=== PATIENT | female | born 1945 | race Caucasian/White ===

== ENCOUNTER → 2017-02-19 | Outpatient (CLI) | payer MEDICARE, OTHER ==
[~2017-02-19] MED LIST: ADENOSINE 65 MG in GIVE UN-DILUTED 0 ML IV ONE; ADENOSINE 90 MG/30 ML INJ IV ONE; ATO40T PO; CLOP75TA28 PO; INSU70IN9 SC; LOSA50TA27 PO; METO25TA5 PO; SERT-135 PO
== END | disposition home or self-care (01) ==
LOC: Rad HDHVI 13:12
PROVIDERS: ATTEND Internal Medicine Cardiovascular Disease
DX: I36.1 Nonrheumatic tricuspid (valve) insufficiency (principal); I27.20 Pulmonary hypertension, unspecified; I06.0 Rheumatic aortic stenosis; I70.0 Atherosclerosis of aorta
CPT/HCPCS: 78452; 93005; 93306; 96374; 96375; A9500; J0153

== ENCOUNTER 2017-06-06 16:04 | Emergency (ER) | payer MEDICARE, OTHER ==
[~2017-06-06] VITALS: Ht 165.1 cm; Wt 80.7 kg
[~2017-06-06 16:04] MED LIST changes: -ADENOSINE 65 MG in GIVE UN-DILUTED 0 ML IV ONE; -ADENOSINE 90 MG/30 ML INJ IV ONE
[2017-06-06 19:03] VITALS: BP 159/85
== END 2017-06-06 19:20 | disposition left against medical advice (07) ==
LOC: ER 16:15
DX: S00.93XA Contusion of unspecified part of head, initial encounter (principal); R51 Headache; Z53.21 Procedure and treatment not carried out due to patient leaving prior to being seen by health care provider; W19.XXXA Unspecified fall, initial encounter; Y93.89 Activity, other specified; Y99.8 Other external cause status; Y92.89 Other specified places as the place of occurrence of the external cause
CPT/HCPCS: 70450

== ENCOUNTER → 2017-06-30 | Outpatient (CLI) | payer MEDICARE, OTHER ==
[~2017-06-30] MED LIST changes: +READI-CAT 2 (BARIUM SULF)(VANILLA SMOOTHIE) 450ML ONE
[2017-06-30 16:09] LABS: Basophils # (auto) 0.1 uL; Basophils % (auto) 1.4 % (0.0-2.0); Eosinophils # (auto) 0.1 uL; Eosinophils % (auto) 2.6 % (0.0-7.0); Hemoglobin 11.9 g/dL (12.2-16.2); Lymphocytes # (auto) 1.2 uL; Lymphocytes % (auto) 24.5 % (10.0-50.0); Mean Corpuscular Hemoglobin 31.1 pg (28.0-32.0); Mean Corpuscular Volume 94.3 fL (80.0-100.0); Monocytes # (auto) 0.3 uL; Neutrophils # (auto) 3.4 uL; Neutrophils % (auto) 66.5 % (37.0-80.0); Platelet Count (auto) 203 10^3/uL (140-450); Red Blood Cells 3.82 10^6/uL (4.0-5.20); Red Cell Distribution Width 16.9 % (11.8-14.3); White Blood Cell 5.1 10^3/uL (4.4-10.8)
[2017-06-30 16:17] LABS: BUN/Creatinine Ratio 10.1; Calcium 8.3 mg/dL (8.5-10.1); Potassium 3.9 mmol/L (3.5-5.1)
== END | disposition home or self-care (01) ==
LOC: Rad HDHVI 13:52
PROVIDERS: ATTEND Internal Medicine Cardiovascular Disease
DX: K57.30 Diverticulosis of large intestine without perforation or abscess without bleeding (principal); R18.8 Other ascites; J90 Pleural effusion, not elsewhere classified; D64.9 Anemia, unspecified; I10 Essential (primary) hypertension
CPT/HCPCS: 36415; 74176; 80048; 85025

== ENCOUNTER → 2018-01-26 | Outpatient (CLI) | payer MEDICARE, OTHER ==
[~2018-01-26] MED LIST changes: -READI-CAT 2 (BARIUM SULF)(VANILLA SMOOTHIE) 450ML ONE
== END | disposition home or self-care (01) ==
LOC: Rad HDHVI 10:19
PROVIDERS: ATTEND Internal Medicine Cardiovascular Disease
DX: E11.9 Type 2 diabetes mellitus without complications (principal); I95.9 Hypotension, unspecified
CPT/HCPCS: 93306

== ENCOUNTER → 2018-02-02 | Outpatient (CLI) | payer MEDICARE, OTHER ==
[~2018-02-02] MED LIST changes: +APIX5TAB OR; +ATOR80TA PO; +CALC0.25 PO; +CALC667C PO; +DOCU-94 PO; +ERGO1CAP23 PO; +HYDR12.56 PO; +LETR2.5T PO; +LOSA100T25 PO; +PERCOT PO
== END | disposition home or self-care (01) ==
LOC: Rad HDHVI 09:51
PROVIDERS: ATTEND Internal Medicine Cardiovascular Disease
DX: I70.203 Unspecified atherosclerosis of native arteries of extremities, bilateral legs (principal); I12.0 Hypertensive chronic kidney disease with stage 5 chronic kidney disease or end stage renal disease; E11.22 Type 2 diabetes mellitus with diabetic chronic kidney disease; N18.6 End stage renal disease
CPT/HCPCS: 93926

== ENCOUNTER → 2018-02-18 | Outpatient (CLI) | payer MEDICARE, OTHER ==
[~2018-02-18] VITALS: Ht 165.1 cm; Wt 83.5 kg
[~2018-02-18] MED LIST changes: +ADENOSINE 70 MG in GIVE UN-DILUTED 0 ML IV ONE; +ADENOSINE 90 MG/30 ML INJ IV ONE; -APIX5TAB OR; -ATOR80TA PO; -CALC0.25 PO; -CALC667C PO; -DOCU-94 PO; -ERGO1CAP23 PO; -HYDR12.56 PO; -LETR2.5T PO; -LOSA100T25 PO; -PERCOT PO
== END | disposition home or self-care (01) ==
LOC: Rad HDHVI 09:43
PROVIDERS: ATTEND Internal Medicine Cardiovascular Disease
DX: E11.21 Type 2 diabetes mellitus with diabetic nephropathy (principal); E11.40 Type 2 diabetes mellitus with diabetic neuropathy, unspecified; E11.22 Type 2 diabetes mellitus with diabetic chronic kidney disease; N18.6 End stage renal disease; I95.9 Hypotension, unspecified; E78.00 Pure hypercholesterolemia, unspecified
CPT/HCPCS: 78452; 93005; 96374; 96375; A9500; J0153

== ENCOUNTER 2018-03-11 09:03 | Inpatient (IN) | payer MEDICARE, OTHER | END 2018-03-12 12:30 | disposition home or self-care (01) | LOC: CATH 09:03 → TELE-WESTW 16:00 → WEST WING 19:57 | PROC: B41G1ZZ Fluoroscopy of Left Lower Extremity Arteries using Low Osmolar Contrast (ICD-10-PCS; principal; ~2018-03-11) | PROC: 047L3ZZ Dilation of Left Femoral Artery, Percutaneous Approach (ICD-10-PCS; ~2018-03-11) | PROC: 047S3ZZ Dilation of Left Posterior Tibial Artery, Percutaneous Approach (ICD-10-PCS; ~2018-03-11) | PROC: 04CN3ZZ Extirpation of Matter from Left Popliteal Artery, Percutaneous Approach (ICD-10-PCS; ~2018-03-11) | PROC: 04CL3ZZ Extirpation of Matter from Left Femoral Artery, Percutaneous Approach (ICD-10-PCS; ~2018-03-11) | PROC: 04CS3ZZ Extirpation of Matter from Left Posterior Tibial Artery, Percutaneous Approach (ICD-10-PCS; ~2018-03-11) | PROC: 047U3ZZ Dilation of Left Peroneal Artery, Percutaneous Approach (ICD-10-PCS; ~2018-03-11) | PROC: 047N3ZZ Dilation of Left Popliteal Artery, Percutaneous Approach (ICD-10-PCS; ~2018-03-11) | PROC: B41F1ZZ Fluoroscopy of Right Lower Extremity Arteries using Low Osmolar Contrast (ICD-10-PCS; ~2018-03-11) | DX: N18.6 End stage renal disease (principal); I13.2 Hypertensive heart and chronic kidney disease with heart failure and with stage 5 chronic kidney disease, or end stage renal disease; N17.9 Acute kidney failure, unspecified; Z86.73 Personal history of transient ischemic attack (TIA), and cerebral infarction without residual deficits; Z85.3 Personal history of malignant neoplasm of breast; E11.51 Type 2 diabetes mellitus with diabetic peripheral angiopathy without gangrene; I48.91 Unspecified atrial fibrillation; E11.22 Type 2 diabetes mellitus with diabetic chronic kidney disease; E78.5 Hyperlipidemia, unspecified; L08.9 Local infection of the skin and subcutaneous tissue, unspecified ==

== ENCOUNTER → 2018-03-19 | Outpatient (CLI) | payer MEDICARE, OTHER ==
[~2018-03-19] MED LIST changes: -ADENOSINE 70 MG in GIVE UN-DILUTED 0 ML IV ONE; -ADENOSINE 90 MG/30 ML INJ IV ONE; +APIX5TAB OR; -ATO40T PO; +ATOR80TA PO; +CALC0.25 PO; +CALC667C PO; -CLOP75TA28 PO; +DOCU-94 PO; +ERGO1CAP23 PO; +LETR2.5T PO; +LOSA100T25 PO; -LOSA50TA27 PO; -METO25TA5 PO; +VANCOMYCIN 1GM/250ML 250 ML IV ONE; +cefTRIAXone 1GM/50ML D5W 50 ML IV ONE
--- NOTE | 2018-03-19 14:00 | NUR ---
IV PLACED TO RIGHT AC 22 GAUGE BY ERIN BARRY. IV ANTIBIOTICS ADMINISTERED PER ORDER. TOLERATED WELL VS WNL. IN ATTENDANCE. LEFT FOOT WITH GANGRENE GREAT TOE. BLACK. COLOR ON FOOT PINK AND REDDISH WITH PALPABLE PULSES AND WARM. MEDICATION ADMINISTRATION CEFTRIAZONE 1 GRAM IVPB START AT 1230/STOP AT 1300 VANCOMYCIN 1 GRAM IVPB START AT 1300/STOP AT 1400
== END | disposition home or self-care (01) ==
LOC: CHF HDHVI 12:12
PROVIDERS: ATTEND Internal Medicine Cardiovascular Disease
DX: E11.52 Type 2 diabetes mellitus with diabetic peripheral angiopathy with gangrene (principal); I70.263 Atherosclerosis of native arteries of extremities with gangrene, bilateral legs; I13.2 Hypertensive heart and chronic kidney disease with heart failure and with stage 5 chronic kidney disease, or end stage renal disease; E11.22 Type 2 diabetes mellitus with diabetic chronic kidney disease; N18.6 End stage renal disease; E11.21 Type 2 diabetes mellitus with diabetic nephropathy; E11.40 Type 2 diabetes mellitus with diabetic neuropathy, unspecified; I25.10 Atherosclerotic heart disease of native coronary artery without angina pectoris; I50.9 Heart failure, unspecified; E78.5 Hyperlipidemia, unspecified; I70.0 Atherosclerosis of aorta; E78.00 Pure hypercholesterolemia, unspecified; I48.91 Unspecified atrial fibrillation; I27.20 Pulmonary hypertension, unspecified; I44.0 Atrioventricular block, first degree; I44.7 Left bundle-branch block, unspecified; Z99.2 Dependence on renal dialysis; Z85.3 Personal history of malignant neoplasm of breast; Z86.73 Personal history of transient ischemic attack (TIA), and cerebral infarction without residual deficits; Z86.718 Personal history of other venous thrombosis and embolism; Z90.10 Acquired absence of unspecified breast and nipple; Z79.4 Long term (current) use of insulin
CPT/HCPCS: 96365; 96367; G0463; J0696; J3370

== ENCOUNTER → 2018-03-22 | Outpatient (CLI) | payer MEDICARE, OTHER ==
[~2018-03-22] VITALS: Ht 30.5 cm; Wt 0.5 kg
[2018-03-22 12:30] VITALS: BP 107/86
--- NOTE | 2018-03-22 12:30 | NUR ---
IN TO CLINIC FOR ADDITIONAL DAY OF IV ANTIBIOTIC THERAPY FOR GANGRENOUS LEFT GREAT TOE. VS WNL. ARRIVES BY WHEELCHAIR WITH IN ATTENDANCE.
--- NOTE | 2018-03-22 13:15 | NUR ---
IV insertion IV access obtained, via clean sterile technique by inserting 22 gauge catheter at after attempt(s)BY 2 RNS. IV secured properly. No trauma to site. Patient tolerated procedure well. START FIRST IV ANTIBIOTIC
--- NOTE | 2018-03-22 13:37 | NUR ---
FIRST ANTIBIOTIC COMPLETED. START SECOND ANTIBIOTIC.
--- NOTE | 2018-03-22 14:45 | NUR ---
ANTIBIOTIC COMPLETED. HEPARIN ADMINISTERED TO KEEP IV PATENT FOR ADDITIONAL USE ON 03/23/18 AND 03/24/18.
[2018-03-22 14:47] VITALS: BP 177/78
--- NOTE | 2018-03-22 14:47 | NUR ---
Discharge Instructions See e-MAR for any mediations given with this visit. Patient education given on disease process. Patient verbalized understanding. Previous labs reviewed. Patient discharged in stable condition WITH AND after care instructions and follow up appointment FOR 03/23/18 MEDICATION ADMINISTRATION ROCEPHIN 1 GRAM IVPB START AT 1315/STOP AT 1337 VANCOMYCIN 1 GRAM IVPB START AT 1337/STOP AT 1445 HEPARIN 100 UNITS IVP AT 1445
== END | disposition home or self-care (01) ==
LOC: CHF HDHVI 12:30
PROVIDERS: ATTEND Internal Medicine Cardiovascular Disease
DX: E11.52 Type 2 diabetes mellitus with diabetic peripheral angiopathy with gangrene (principal); I96 Gangrene, not elsewhere classified; E11.22 Type 2 diabetes mellitus with diabetic chronic kidney disease; I13.2 Hypertensive heart and chronic kidney disease with heart failure and with stage 5 chronic kidney disease, or end stage renal disease; I50.9 Heart failure, unspecified; N18.6 End stage renal disease; D63.1 Anemia in chronic kidney disease; I25.10 Atherosclerotic heart disease of native coronary artery without angina pectoris; E78.5 Hyperlipidemia, unspecified; E78.00 Pure hypercholesterolemia, unspecified; E11.40 Type 2 diabetes mellitus with diabetic neuropathy, unspecified; E11.21 Type 2 diabetes mellitus with diabetic nephropathy; I48.91 Unspecified atrial fibrillation; Z95.0 Presence of cardiac pacemaker; Z85.3 Personal history of malignant neoplasm of breast; Z86.718 Personal history of other venous thrombosis and embolism; Z99.2 Dependence on renal dialysis; Z79.4 Long term (current) use of insulin
CPT/HCPCS: 96365; 96367; G0463; J0696; J1642; J3370

== ENCOUNTER → 2018-03-23 | Outpatient (CLI) | payer MEDICARE, OTHER ==
[~2018-03-23] VITALS: Ht 1 cm; Wt 1.0 kg
[2018-03-23 12:30] VITALS: BP 128/56
[2018-03-23 14:15] VITALS: BP 139/63
--- NOTE | 2018-03-23 14:15 | NUR ---
IN TO CLINIC WITH IN ATTENDANCE. PT UNABLE TO WALK AND HAS SOCK PLACED OVER LEFT FOOT. PT REPORTS THAT HER FOOT ;LOOKS BAD TODAY". PT INSTRUCTED ON STATUS, AND PT HAS SMALL AMOUNT SOME RESIDUAL SWELLING NOTED. REPORTS THAT SHE WAS UP ON FOOT QUITE A BIT THROUGH DAY YESTERDAY. VS WNL. AFFECT COOPERATIVE. RIGHT WRIST IV SITE USED AND FLUSHED AND ADMINISTERED IV MEDS AND SITE BENIGN POST USE . WRAPPED AND HEPARINIZED POST USE. Discharge Instructions See e-MAR for any mediations given with this visit. Patient education given on disease process. Patient verbalized understanding. Previous labs reviewed. Patient discharged in stable condition with after care instructions and follow up appointment FOR 03/24/18 MEDICATION ADMINISTRATION ROCEPHIN 1 GRAM IVPB START AT 1250/STOP AT 1320 VANCOMYCIN 1 GRAM IVPB START AT 1320 STOP AT 1415 HEPARIN 100 UNITS IVP TO RIGHT WRIST IV
== END | disposition home or self-care (01) ==
LOC: CHF HDHVI 12:27
PROVIDERS: ATTEND Internal Medicine Cardiovascular Disease
DX: I12.0 Hypertensive chronic kidney disease with stage 5 chronic kidney disease or end stage renal disease (principal); E11.22 Type 2 diabetes mellitus with diabetic chronic kidney disease; I50.9 Heart failure, unspecified; N18.6 End stage renal disease; D63.1 Anemia in chronic kidney disease; E11.52 Type 2 diabetes mellitus with diabetic peripheral angiopathy with gangrene; E11.40 Type 2 diabetes mellitus with diabetic neuropathy, unspecified; I25.10 Atherosclerotic heart disease of native coronary artery without angina pectoris; I27.21 Secondary pulmonary arterial hypertension; I48.91 Unspecified atrial fibrillation; E78.00 Pure hypercholesterolemia, unspecified; Z99.2 Dependence on renal dialysis; Z79.4 Long term (current) use of insulin; Z86.718 Personal history of other venous thrombosis and embolism; Z90.10 Acquired absence of unspecified breast and nipple; Z86.73 Personal history of transient ischemic attack (TIA), and cerebral infarction without residual deficits
CPT/HCPCS: 96365; 96367; G0463; J0696; J1642; J3370

== ENCOUNTER → 2018-04-13 | Outpatient (CLI) | payer MEDICARE, OTHER ==
[~2018-04-13] MED LIST changes: -DOCU-94 PO; -VANCOMYCIN 1GM/250ML 250 ML IV ONE; -cefTRIAXone 1GM/50ML D5W 50 ML IV ONE
[2018-04-13 11:00] VITALS: BP 135/65
--- NOTE | 2018-04-13 11:00 | NUR ---
CHF PT TO CHF CLINIC FOR PREOP EKG. LABS AND CHEST XRAY TO READY FOR PROCEDURE PTCA 04/15/18.
[2018-04-13 11:30] VITALS: BP 146/56
--- NOTE | 2018-04-13 11:30 | NUR ---
CHF Discharge Instructions See e-MAR for any mediations given with this visit. Patient education given on disease process. Patient verbalized understanding. Previous labs reviewed. Patient discharged in stable condition with after care instructions and follow up appointment.
[2018-04-13 12:18] LABS: Basophils # (auto) 0.1 uL; Basophils % (auto) 1.4 % (0.0-2.0); Eosinophils # (auto) 0.3 uL; Eosinophils % (auto) 3.3 % (0.0-7.0); Hematocrit 32.1 % (36.0-46.0); Hemoglobin 10.6 g/dL (12.2-16.2); Lymphocytes # (auto) 1.7 uL; Lymphocytes % (auto) 19.6 % (10.0-50.0); Mean Corpuscular Hemoglobin 31.7 pg (28.0-32.0); Mean Corpuscular Hgb Conc. 33.1 g/dL (32.0-36.0); Mean Corpuscular Volume 95.6 fL (80.0-100.0); Monocytes # (auto) 0.5 uL; Monocytes % (auto) 5.5 % (0.0-12.0); Neutrophils % (auto) 70.2 % (37.0-80.0); Platelet Count (auto) 279 10^3/uL (140-450); Red Blood Cells 3.35 10^6/uL (4.0-5.20); White Blood Cell 8.6 10^3/uL (4.4-10.8)
[2018-04-13 12:31] LABS: BUN/Creatinine Ratio 10.3; Calcium 8.3 mg/dL (8.5-10.1); Potassium 4.1 mmol/L (3.5-5.1)
[2018-04-13 12:37] LABS: INR 0.93 (0.9-1.15); Partial Thromboplastin Time 29.2 sec (23.78-33.04)
== END | disposition home or self-care (01) ==
LOC: CHF HDHVI 10:44
PROVIDERS: ATTEND Internal Medicine Cardiovascular Disease
DX: Z01.812 Encounter for preprocedural laboratory examination (principal); I70.0 Atherosclerosis of aorta; I10 Essential (primary) hypertension; I73.9 Peripheral vascular disease, unspecified; D64.9 Anemia, unspecified; R79.1 Abnormal coagulation profile; R94.31 Abnormal electrocardiogram [ECG] [EKG]; Z98.61 Coronary angioplasty status
CPT/HCPCS: 36415; 71046; 80048; 85025; 85610; 85730; 93005; G0463

== ENCOUNTER 2018-04-15 06:46 | Inpatient (IN) | payer MEDICARE, OTHER | END 2018-04-16 16:22 | disposition home or self-care (01) | LOC: CATH 06:46 → TELE-EAST 13:55 | PROC: B2161ZZ Fluoroscopy of Right and Left Heart using Low Osmolar Contrast (ICD-10-PCS; principal; ~2018-04-15) | PROC: 027236Z Dilation of Coronary Artery, Three Arteries with Three Drug-eluting Intraluminal Devices, Percutaneous Approach (ICD-10-PCS; ~2018-04-15) | DX: I25.10 Atherosclerotic heart disease of native coronary artery without angina pectoris (principal); N18.6 End stage renal disease; D68.59 Other primary thrombophilia; I48.91 Unspecified atrial fibrillation; Z99.2 Dependence on renal dialysis; I49.5 Sick sinus syndrome ==

== ENCOUNTER 2018-04-28 08:45 | Inpatient (IN) | payer MEDICARE, OTHER | END 2018-04-30 17:07 | disposition home or self-care (01) | LOC: CATH 09:13 → TELE-EAST 17:40 | PROC: B2111ZZ Fluoroscopy of Multiple Coronary Arteries using Low Osmolar Contrast (ICD-10-PCS; principal; ~2018-04-28) | PROC: 0270356 Dilation of Coronary Artery, One Artery, Bifurcation, with Two Drug-eluting Intraluminal Devices, Percutaneous Approach (ICD-10-PCS; ~2018-04-28) | DX: I22.9 Subsequent ST elevation (STEMI) myocardial infarction of unspecified site (principal); D68.59 Other primary thrombophilia; I21.4 Non-ST elevation (NSTEMI) myocardial infarction ==

== ENCOUNTER → 2018-05-26 | Outpatient (CLI) | payer MEDICARE, OTHER ==
[~2018-05-26] MED LIST changes: +AMIODARONE HCL 200 MG TAB ONE; +AMIODARONE HCL 200 MG TAB PO ONE; -APIX5TAB OR
[2018-05-26 11:14] VITALS: BP 94/61
--- NOTE | 2018-05-26 11:14 | NUR ---
CHF PT ARRIVED AT CHF CLINIC SHORT OF BREATH AND INCREASE HEART RATE. A/O X 4. V//S OBTAINED. PT SEES [place] [facility]. PT WAS ON WAY [place] [facility] TO SEE DR MASSEY FOR LABS BUT TURNED AROUND TO THE CLINIC DUE TO ALSO HAVING AN ECHO AT 1300 HERE.
--- NOTE | 2018-05-26 11:30 | NUR ---
IV insertion IV access obtained, via clean sterile technique by inserting 22 gauge catheter at after attempt(s). IV secured properly. No trauma to site. Patient tolerated procedure well.
--- NOTE | 2018-05-26 11:45 | NUR ---
Clinic Provider Clinic Provider into see pt, ORDERS RECIEVED AND NOTED. EKG DONE.
--- NOTE | 2018-05-26 12:15 | NUR ---
PT RESTING, ULTRASOUND COMPLETED
--- NOTE | 2018-05-26 12:43 | NUR ---
MEDICATION AMIODARONE 400MG PO GIVEN TO PATIENT BY LUIZ BARRY PER MD ORDER
[2018-05-26 13:04] LABS: Basophils # (auto) 0.1 uL; Basophils % (auto) 0.9 % (0.0-2.0); Eosinophils # (auto) 0.3 uL; Eosinophils % (auto) 2.8 % (0.0-7.0); Hematocrit 30.2 % (36.0-46.0); Lymphocytes # (auto) 1.2 uL; Lymphocytes % (auto) 12.9 % (10.0-50.0); Mean Corpuscular Hemoglobin 33.3 pg (28.0-32.0); Mean Corpuscular Hgb Conc. 33.1 g/dL (32.0-36.0); Mean Corpuscular Volume 100.4 fL (80.0-100.0); Monocytes # (auto) 0.6 uL; Monocytes % (auto) 6.1 % (0.0-12.0); Neutrophils # (auto) 7.5 uL; Neutrophils % (auto) 77.3 % (37.0-80.0); Platelet Count (auto) 316 10^3/uL (140-450); Red Blood Cells 3.01 10^6/uL (4.0-5.20); Red Cell Distribution Width 17.1 % (11.8-14.3); White Blood Cell 9.7 10^3/uL (4.4-10.8)
[2018-05-26 13:30] LABS: Calcium 9.2 mg/dL (8.5-10.1); Magnesium 3.6 mg/dL (1.6-2.6); Potassium 3.7 mmol/L (3.5-5.1)
[2018-05-26 13:36] LABS: BUN/Creatinine Ratio 4.2
--- NOTE | 2018-05-26 15:00 | NUR ---
IMAGING ECHO AND CHEST XRAY COMPLETED
--- NOTE | 2018-05-26 16:10 | NUR ---
at bedside. MD at bedside for evaluation and treatment for acute episode. Further orders received and carried out. Patient improved thhroughout the day. MD paredes reviewed echo, discussed with patient. Follow up scheduled for thursday05/28/18 at the clinic. Josias BARRY discussed plan of care with patient and . Pt and family verbalized understanding
--- NOTE | 2018-05-26 16:25 | NUR ---
IV removal IV DC'd with sterile technique, catheter fully intact. Pressure dressing applied to site. Patient tolerated procedure well. Discharged with aftercare instructions per MD. NOTE:
[2018-05-26 16:29] VITALS: BP 113/67
== END | disposition home or self-care (01) ==
LOC: CHF HDHVI 11:21
PROVIDERS: ATTEND Internal Medicine Cardiovascular Disease
DX: I08.1 Rheumatic disorders of both mitral and tricuspid valves (principal); I21.09 ST elevation (STEMI) myocardial infarction involving other coronary artery of anterior wall; I70.0 Atherosclerosis of aorta; D64.9 Anemia, unspecified; I20.9 Angina pectoris, unspecified; I11.0 Hypertensive heart disease with heart failure; I50.23 Acute on chronic systolic (congestive) heart failure; I27.21 Secondary pulmonary arterial hypertension; M54.16 Radiculopathy, lumbar region; E11.9 Type 2 diabetes mellitus without complications; I48.91 Unspecified atrial fibrillation; I49.9 Cardiac arrhythmia, unspecified; R94.31 Abnormal electrocardiogram [ECG] [EKG]
CPT/HCPCS: 36415; 71046; 80048; 82962; 83735; 83880; 84484; 85025; 93005; 93306; G0463

== ENCOUNTER → 2018-05-28 | Outpatient (CLI) | payer MEDICARE, OTHER ==
[~2018-05-28] MED LIST changes: +AMIO200T33 PO; -AMIODARONE HCL 200 MG TAB ONE; -AMIODARONE HCL 200 MG TAB PO ONE; +ASPI81CH43 PO; +BUME1TAB PO; +CHOL500021 PO; +FAM20T PO; +GENTAMICIN SULF 80 MG/2 ML VIAL ONE; +PATIENTS OWN MEDICATION (GENTAMICIN 160 MG) IV ONE; +SIMV40TA96 PO; +TICA1TAB PO; +VANCOMYCIN 1GM/250ML 250 ML IV ONE
[2018-05-28 10:03] VITALS: BP 108/49
--- NOTE | 2018-05-28 10:03 | NUR ---
CHF CLINIC Discharge Instructions See e-MAR for any mediations given with this visit. Patient education given on disease process. Patient verbalized understanding. Previous labs reviewed. Patient discharged in stable condition with after care instructions and follow up appointment. NOTE [place] [id number] ADMIN BY ERIN BARRY [facility] [id number] ADMIN BY ERIN BARRY Addendum: 07/07/18 at 1323 by SHANNON DELAROSA RN RN [place] LATE ENTRY FOR 05/28/18 [place] [id number] ADMIN BY ERIN BARRY
--- NOTE | 2018-05-28 10:30 | NUR ---
IV insertion IV access obtained, via clean sterile technique by inserting 22 gauge catheter at RAC after 1 attempt(s). IV secured properly. No trauma to site. Patient tolerated procedure well.
--- NOTE | 2018-05-28 10:35 | NUR ---
STAT LABS SENT PER MD ORDER FOR POSSIBLE ADMIT TO [facility]. PER SPOUSE, PT. 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 PT. APPEARS IN NAD SINCE LAST SEEN IN CLINIC ON [facility]. FBS IS 221. PT. HAS NOT BEEN ABLE TO TAKE HER PO KEFLEX FOR OVER 24 HRS DUE TO NAUSEA.
[2018-05-28 11:30] LABS: Basophils # (auto) 0.1 uL; Basophils % (auto) 0.8 % (0.0-2.0); Eosinophils # (auto) 0.3 uL; Eosinophils % (auto) 2.7 % (0.0-7.0); Hematocrit 30.1 % (36.0-46.0); Hemoglobin 9.8 g/dL (12.2-16.2); Lymphocytes # (auto) 0.8 uL; Lymphocytes % (auto) 9.1 % (10.0-50.0); Mean Corpuscular Hemoglobin 32.4 pg (28.0-32.0); Mean Corpuscular Hgb Conc. 32.6 g/dL (32.0-36.0); Mean Corpuscular Volume 99.5 fL (80.0-100.0); Monocytes # (auto) 0.4 uL; Monocytes % (auto) 4.7 % (0.0-12.0); Neutrophils # (auto) 7.6 uL; Neutrophils % (auto) 82.7 % (37.0-80.0); Nucleated Red Blood Cells % 0.1 %; Platelet Count (auto) 307 10^3/uL (140-450); Red Blood Cells 3.03 10^6/uL (4.0-5.20); Red Cell Distribution Width 17.3 % (11.8-14.3); White Blood Cell 9.2 10^3/uL (4.4-10.8)
--- NOTE | 2018-05-28 11:30 | NUR ---
PT. TO DR. SORENSON'S OFFICE VIA WC WITH THIS RN AND SPOUSE, FOR LAB RESULTS AND REVIEW OF DIAGNOSTICS FROM [facility]. AND POSSIBLE NEED FOR HOSPITALIZATION DUE TO MULTIPLE DZ. PROCESS CO-MORBIDITY ISSUES, INCLUDING INFECTION TO RT GREATER TOE, REVASCULARIZATION TO RLE, NEED FOR UPGRADE TO BI-V AICD, AND TEMPORARY HEMODIALYSIS. SPOUSE REQUESTS IF PT. CAN WAIT UNTIL THURSDAY FOR ADMISSION, OR POSSIBLY PUT PT. ON LIST FOR THURSDAY EVENING. NEW ORDERS RECEIVED FROM DR. SORENSON FOR ABX THERAPY, THEN DISCHARGE HOME AND KEEP IN CONTACT WITH THIS RN ON PT. STATUS OVER THE WEEKEND. IF PT. FEELS WELL, PT. TO RTC THURSDAY AM FOR ADMIT TO [facility].
[2018-05-28 11:36] LABS: Albumin 2.4 g/dL (3.4-5.0); Calcium 8.7 mg/dL (8.5-10.1); Potassium 3.4 mmol/L (3.5-5.1)
[2018-05-28 11:41] LABS: BUN/Creatinine Ratio 4.3; Bilirubin, Total 0.4 mg/dL (0.2-1.0); Total Protein 7.9 g/dL (6.4-8.2)
[2018-05-28 11:46] LABS: Partial Thromboplastin Time 29.6 sec (23.78-33.04); Prothrombin Time 10.7 sec (9.27-12.13)
[2018-05-28 14:45] VITALS: BP 104/52
--- NOTE | 2018-05-28 14:45 | NUR ---
Discharge Instructions See e-MAR for any mediations given with this visit. Patient education given on disease process. Patient verbalized understanding. Previous labs reviewed. Patient discharged in stable condition with after care instructions and follow up appointment. PT. TO FOLLOW UP WITH RN OVER THE WEEKEND. PT. TO RTC THURSDAY AM AT 10:00.
== END | disposition home or self-care (01) ==
LOC: CHF HDHVI 10:51
PROVIDERS: ATTEND Internal Medicine Cardiovascular Disease
DX: I13.2 Hypertensive heart and chronic kidney disease with heart failure and with stage 5 chronic kidney disease, or end stage renal disease (principal); E11.22 Type 2 diabetes mellitus with diabetic chronic kidney disease; I50.22 Chronic systolic (congestive) heart failure; N18.6 End stage renal disease; D64.9 Anemia, unspecified; L08.9 Local infection of the skin and subcutaneous tissue, unspecified; R79.1 Abnormal coagulation profile; I27.21 Secondary pulmonary arterial hypertension; I48.91 Unspecified atrial fibrillation; I25.10 Atherosclerotic heart disease of native coronary artery without angina pectoris; E78.5 Hyperlipidemia, unspecified; I25.2 Old myocardial infarction; E11.40 Type 2 diabetes mellitus with diabetic neuropathy, unspecified; E11.69 Type 2 diabetes mellitus with other specified complication; M86.9 Osteomyelitis, unspecified; E11.51 Type 2 diabetes mellitus with diabetic peripheral angiopathy without gangrene; I45.9 Conduction disorder, unspecified; Z95.1 Presence of aortocoronary bypass graft; Z99.2 Dependence on renal dialysis; Z95.5 Presence of coronary angioplasty implant and graft; Z79.01 Long term (current) use of anticoagulants; Z86.73 Personal history of transient ischemic attack (TIA), and cerebral infarction without residual deficits
CPT/HCPCS: 36415; 80053; 83880; 85025; 85610; 85730; 96365; 96367; G0463; J1580; J3370

== ENCOUNTER 2018-06-03 09:11 | Inpatient (IN) | payer MEDICARE, OTHER | END 2018-06-05 11:19 | disposition home or self-care (01) | LOC: CATH 09:11 → EAST 19:16 → TELE-EAST 20:23 | PROC: 0JH609Z Insertion of Cardiac Resynchronization Defibrillator Pulse Generator into Chest Subcutaneous Tissue and Fascia, Open Approach (ICD-10-PCS; principal; ~2018-06-03) | PROC: 02HK3KZ Insertion of Defibrillator Lead into Right Ventricle, Percutaneous Approach (ICD-10-PCS; ~2018-06-03) | PROC: 02HL3KZ Insertion of Defibrillator Lead into Left Ventricle, Percutaneous Approach (ICD-10-PCS; ~2018-06-03) | PROC: 02H63KZ Insertion of Defibrillator Lead into Right Atrium, Percutaneous Approach (ICD-10-PCS; ~2018-06-03) | PROC: 0JPT3PZ Removal of Cardiac Rhythm Related Device from Trunk Subcutaneous Tissue and Fascia, Percutaneous Approach (ICD-10-PCS; ~2018-06-03) | PROC: 04CR3ZZ Extirpation of Matter from Right Posterior Tibial Artery, Percutaneous Approach (ICD-10-PCS; ~2018-06-03) | PROC: 04CM3ZZ Extirpation of Matter from Right Popliteal Artery, Percutaneous Approach (ICD-10-PCS; ~2018-06-03) | PROC: 047R3ZZ Dilation of Right Posterior Tibial Artery, Percutaneous Approach (ICD-10-PCS; ~2018-06-03) | PROC: 047M3ZZ Dilation of Right Popliteal Artery, Percutaneous Approach (ICD-10-PCS; ~2018-06-03) | PROC: B41G1ZZ Fluoroscopy of Left Lower Extremity Arteries using Low Osmolar Contrast (ICD-10-PCS; ~2018-06-03) | PROC: B41F1ZZ Fluoroscopy of Right Lower Extremity Arteries using Low Osmolar Contrast (ICD-10-PCS; ~2018-06-03) | DX: I49.5 Sick sinus syndrome (principal); N18.6 End stage renal disease; I50.23 Acute on chronic systolic (congestive) heart failure; M86.9 Osteomyelitis, unspecified; L97.909 Non-pressure chronic ulcer of unspecified part of unspecified lower leg with unspecified severity; L03.90 Cellulitis, unspecified; I25.5 Ischemic cardiomyopathy ==

== ENCOUNTER → 2018-06-09 | Outpatient (CLI) | payer MEDICARE, OTHER ==
[~2018-06-09] MED LIST changes: -ATOR80TA PO; -ERGO1CAP23 PO; +GENTAMICIN SULFATE 160 MG in D5W 5% 100 ML IV ONE; -PATIENTS OWN MEDICATION (GENTAMICIN 160 MG) IV ONE
[2018-06-09 13:00] VITALS: BP 119/51
[2018-06-09 15:30] VITALS: BP 108/55
--- NOTE | 2018-06-09 15:30 | NUR ---
IN TO CLINIC FOR SCHEDULED INFUSION OF ANTIBIOTICS AFTER SEEING PHYSICIAN YESTERDAY. PT HAS CHRONIC NON HEALING FOOT WOUND THAT REQUIRES ANTIBIOTICS AT THIS TIME. IV insertion IV access obtained, via clean sterile technique by inserting 22 gauge catheter at after attempt(s)BY 2 RNS. . IV secured properly. No trauma to site. Patient tolerated procedure well. IVS ADMINISTERED SEQUENTIALLY AND TOLERATED WELL WITH IN ATTENDANCE. WITHOUT DISTRESS OR DISCOMFORT. VS WNL. Discharge Instructions See e-MAR for any mediations given with this visit. Patient education given on disease process. Patient verbalized understanding. Previous labs reviewed. Patient discharged in stable condition with after care instructions. MEDICATION ADMINISTRATION VANCOMYCIN 1 GRAM IVPB START AT 1334/STOP AT 1433 (250 ML) GENTAMYCIN 160 MG IVP START AT 1433/STOP AT 1530 (100 ML)
[2018-06-09 15:58] LABS: Eosinophils # (auto) 0.2 uL; Lymphocytes # (auto) 1.2 uL; Mean Corpuscular Hemoglobin 33.2 pg (28.0-32.0); Mean Corpuscular Hgb Conc. 32.4 g/dL (32.0-36.0); Monocytes # (auto) 0.6 uL; Nucleated Red Blood Cells % 0.2 %
[2018-06-09 16:04] LABS: Basophils # (auto) 0.2 uL; Basophils % (auto) 2.2 % (0.0-2.0); Eosinophils % (auto) 3.1 % (0.0-7.0); Hematocrit 30.9 % (36.0-46.0); Lymphocytes % (auto) 15.7 % (10.0-50.0); Mean Corpuscular Volume 102.4 fL (80.0-100.0); Monocytes % (auto) 7.6 % (0.0-12.0); Neutrophils # (auto) 5.3 uL; Neutrophils % (auto) 71.4 % (37.0-80.0); Platelet Count (auto) 200 10^3/uL (140-450); Red Blood Cells 3.02 10^6/uL (4.0-5.20); Red Cell Distribution Width 16.7 % (11.8-14.3); White Blood Cell 7.4 10^3/uL (4.4-10.8)
[2018-06-09 16:16] LABS: BUN/Creatinine Ratio 3.3; Calcium 8.6 mg/dL (8.5-10.1); Potassium 3.1 mmol/L (3.5-5.1)
== END | disposition home or self-care (01) ==
LOC: CHF HDHVI 13:04
PROVIDERS: ATTEND Internal Medicine Cardiovascular Disease
DX: I13.2 Hypertensive heart and chronic kidney disease with heart failure and with stage 5 chronic kidney disease, or end stage renal disease (principal); E11.22 Type 2 diabetes mellitus with diabetic chronic kidney disease; E11.21 Type 2 diabetes mellitus with diabetic nephropathy; E11.40 Type 2 diabetes mellitus with diabetic neuropathy, unspecified; E11.69 Type 2 diabetes mellitus with other specified complication; E11.52 Type 2 diabetes mellitus with diabetic peripheral angiopathy with gangrene; I96 Gangrene, not elsewhere classified; N18.6 End stage renal disease; I50.22 Chronic systolic (congestive) heart failure; D64.9 Anemia, unspecified; E78.5 Hyperlipidemia, unspecified; I25.2 Old myocardial infarction; M86.9 Osteomyelitis, unspecified; I48.91 Unspecified atrial fibrillation; I25.10 Atherosclerotic heart disease of native coronary artery without angina pectoris; Z99.2 Dependence on renal dialysis; Z86.73 Personal history of transient ischemic attack (TIA), and cerebral infarction without residual deficits; Z79.01 Long term (current) use of anticoagulants; Z95.1 Presence of aortocoronary bypass graft; Z95.5 Presence of coronary angioplasty implant and graft
CPT/HCPCS: 36415; 80048; 85025; 96365; 96367; G0463; J1580; J3370; J7060

== ENCOUNTER 2018-07-14 10:47 | Inpatient (IN) | payer MEDICARE, OTHER ==
[~2018-07-14] VITALS: Ht 165.1 cm; Wt 72.8 kg
[~2018-07-14 10:47] MED LIST changes: -GENTAMICIN SULF 80 MG/2 ML VIAL ONE; -GENTAMICIN SULFATE 160 MG in D5W 5% 100 ML IV ONE; -VANCOMYCIN 1GM/250ML 250 ML IV ONE
--- NOTE | 2018-07-14 12:00 | NUR ---
RECEIVED PATIENT TO THE FLOOR A DIRECT ADMIT. PATIENT AWAKE ALERT AND ORIENTED. BED LOCKED IN LOWEST POSITION WITH TWO SIDE RAILS UP AND CALL LIGHT IN REACH. AT BEDSIDE.
[2018-07-14 12:46] VITALS: BP 128/54
[2018-07-14] MEDS ORDERED: DEXTROSE (50%) 50ML SYRG IV PRN (14:00)
[2018-07-14 14:41] LABS: Basophils # (auto) 0.1 uL; Basophils % (auto) 1.5 % (0.0-2.0); Eosinophils # (auto) 0.1 uL; Eosinophils % (auto) 1.2 % (0.0-7.0); Hematocrit 29.8 % (36.0-46.0); Hemoglobin 9.9 g/dL (12.2-16.2); Lymphocytes # (auto) 1.3 uL; Lymphocytes % (auto) 17.9 % (10.0-50.0); Mean Corpuscular Hemoglobin 32.4 pg (28.0-32.0); Mean Corpuscular Hgb Conc. 33.1 g/dL (32.0-36.0); Mean Corpuscular Volume 97.6 fL (80.0-100.0); Monocytes # (auto) 0.9 uL; Monocytes % (auto) 13.2 % (0.0-12.0); Neutrophils # (auto) 4.7 uL; Neutrophils % (auto) 66.2 % (37.0-80.0); Platelet Count (auto) 173 10^3/uL (140-450); Red Blood Cells 3.05 10^6/uL (4.0-5.20); Red Cell Distribution Width 15.1 % (11.8-14.3); White Blood Cell 7.1 10^3/uL (4.4-10.8)
[2018-07-14 14:51] LABS: Partial Thromboplastin Time 27.2 sec (23.78-33.04); Prothrombin Time 10.7 sec (9.27-12.13)
[2018-07-14 14:56] LABS: BUN/Creatinine Ratio 3.9
[2018-07-14 15:01] LABS: Potassium 2.9 mmol/L (3.5-5.1)
--- NOTE | 2018-07-14 15:18 | NUR ---
PATIENT HAS CRITICAL LAB VALUES OF K 2.[address] SORENSON NOTIFIED.
[2018-07-14 15:31] VITALS: BP 128/54
--- NOTE | 2018-07-14 15:36 | NUR ---
ORDERS RECEIVED FOR POTASSIUM 40 MeQ once PO will carry out orders.
[2018-07-14] MEDS ORDERED: POTASSIUM CHL 20 Meq TABLET PO ONE (15:45)
--- NOTE | 2018-07-14 16:25 | NUR ---
WOUND PICTURES PHOTOS TAKEN OF GREAT BILATERAL TOES AND RIGHT HEEL. PLACED IN WOUND FILE.
--- NOTE | 2018-07-14 16:26 | NUR ---
PATIENT GIVEN POTASSIUM PILLS 40 MEQ, PATIENT TOLERATED WELL.
[2018-07-14 16:55] VITALS: BP 121/72
[2018-07-14] MEDS: ACCU-CHEK COMFORT CURVE STRIP VI SCH ×2 (17:11→21:50)
[2018-07-14] MEDS: InsuLIN REG 1unit/0.01ml Soln (100units/ml) SC SCH ×2 (17:21→21:53)
--- NOTE | 2018-07-14 19:35 | NUR ---
OPENING NOTE REPORT RECEIVED FROM DAY SHIFT RN PATIENT IS A/OX4 RESTING IN BED, ABLE TO ANSWER ALL QUESTIONS APPROPRIATELY. PATIENT DENIES ANY PAIN OR DISTRESS AT THIS TIME. PERITONEAL DIALYSIS CATHETER NOTED TO MEDIAL ABDOMEN. PATIENT ABLE TO TURN/REPOSITION SELF WITHOUT DIFFICULTIES. BILATERAL GREAT TOES ARE NECROTIC/BLACKENED. NO OTHER SKIN ISSUES NOTED. POC DISCUSSED. CALL LIGHT WITHIN REACH.
[2018-07-14 21:40] VITALS: BP 112/45
[2018-07-14] MEDS: AMIODARONE HCL 200 MG TAB PO SCH (21:50)
[2018-07-14] MEDS: APIXABAN 5 MG TAB PO SCH (21:50)
[2018-07-14] MEDS: ATORVASTATIN 20 MG TAB PO SCH (21:50)
[2018-07-15] VITALS (7 sets, daily range): BP systolic 104–145; BP diastolic 46–107
[2018-07-15] MEDS: ACCU-CHEK COMFORT CURVE STRIP VI SCH ×4 (06:55→21:37)
[2018-07-15] MEDS: InsuLIN REG 1unit/0.01ml Soln (100units/ml) SC SCH ×4 (06:55→21:43)
--- NOTE | 2018-07-15 07:24 | NUR ---
CLOSING NOTE REPORT ENDORSED TO DAY SHIFT JHONNY SYED PATIENT IS RESTING COMFORTABLY IN BED, NO S/S OF DISTRESS NOTED CALL LIGHT WITHIN REACH
[2018-07-15] MEDS: APIXABAN 5 MG TAB PO SCH ×2 (09:46→21:35)
[2018-07-15] MEDS: DIGOXIN 0.125 MG TAB PO SCH (09:46)
[2018-07-15] MEDS: SERTRALINE HCL 50 MG TAB PO SCH (09:46)
[2018-07-15] MEDS: AMIODARONE HCL 200 MG TAB PO SCH ×2 (09:46→21:35)
[2018-07-15] MEDS: LETROZOLE 2.5 MG PO SCH (09:47)
--- NOTE | 2018-07-15 10:28 | NUR ---
SPOKE WITH COURT BARRY, SHE SAID PT WILL BE SCHEDULED TOMORROW 9AM FOR REMOVAL OF PERITONEAL DIALYSIS CATHETER AND PLACEMENT OF NEW DIALYSIS CATHETER.
--- NOTE | 2018-07-15 12:49 | NUR ---
DR. SORENSON ORDERED NORCO 10/325 Q6HRS PRN FOR PAIN.
--- NOTE | 2018-07-15 14:18 | NUR ---
WOUND CARE NURSE KATHLEEN RECOMMEND PODIATRY CONSULT FOR BILATERAL GREAT TOES, DR. SOERNSON NOTIFIED.
--- NOTE | 2018-07-15 14:20 | NUR ---
WOUND CARE NOTE: Wound care consult received from nursing for wounds to bilateral great toes. Patient is a 72 yo female admitted for ESRD. Patient with a history of CVA, vertigo, [place], angina, CKD on PD, CHF, CABG, PTCA, pacemaker, diabetes, depression, anxiety and falls. Patient is alert and denies pain. Last Rey score is 20. Patient states that she has been trying to see a nursing informatics clinical analyst as an outpatient but keeps getting readmitted to hospital. Patient states that she cleanse her bilateral great toes and paints with betadine daily. 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 No open wounds noted. Patient also noted to have an area to the posterior right heel that is red, intact and non blanching. RECOMMENDATIONS: Podiatry consult if of with Dr Gauthier; Nursing to cleanse bilateral great toes with mild soap and water, pat dry and paint with betadine daily; Nursing to off load bilateral heels with pillows or Prairie boots; wound care team to follow. Addendum: 07/15/18 at 1753 by KATHLEEN PINEDA RN Amended: Links added.
--- NOTE | 2018-07-15 14:22 | NUR ---
DR. SORENSON ORDERED PODIATRY CONSULT.
--- NOTE | 2018-07-15 14:51 | NUR ---
Nutrition consult/assessment Notes Please see attached link for complete assessment Est. Needs BW [id number] kcal (27-30 kcal/kgBW), 84-98 gms pro (1.2-1.4 gm/kgBW r/t HD wounds). Will continue to monitor pertinent labs and reassess nutrient need prn. Addendum: 07/15/18 at [address] Amended: Links added.
[2018-07-15] MEDS ORDERED: POTASSIUM CHL 20 Meq TABLET PO ONE (15:30)
--- NOTE | 2018-07-15 17:24 | NUR ---
DR. SORENSON NOTIFIED PT IS ASKING MEDICATION FOR NAUSEA, WAITING FOR CALL BACK. Addendum: 07/15/18 at 1753 by Micheline Gee RN DR. SORENSON ORDERED REGLAN 10MG Q8HRS PRN FOR NAUSEA.
[2018-07-15] MEDS ORDERED: METOCLOPRAMIDE HCL 5MG/ml INJ 2ml VIAL IV PRN (18:00)
--- NOTE | 2018-07-15 18:33 | NUR ---
PT SEEN BY DR. KELLEY HE ORDERED XRAY 3 VIEWS OF BILATERAL LOWER EXTREMITY TO R/O OSTEOMYELITIS, HE RECOMMEND BILATERAL PARTIAL AMPUTATION OF GREAT TOES.
--- NOTE | 2018-07-15 18:55 | NUR ---
PER DR. SORENSON BLOOD VESSELS ARE ALREADY OPEN DR. KELLEY CAN GO AHEAD WITH HIS PLAN FOR PARTIAL BILATERAL GREAT TOE AMPUTATION.
[2018-07-15] MEDS: Nepro With Carbsteady Vanilla 8oz Carton PO SCH (18:59)
--- NOTE | 2018-07-15 19:40 | NUR ---
OPENING NOTE REPORT RECEIVED FROM DAY SHIFT RN PATIENT IS A/OX4 RESTING IN BED, NO S/S OF DISTRESS NOTED. POC EXPLAINED TO PATIENT. PATIENT EDUCATED TO BE NPO AFTER MIDNIGHT FOR PENDING DIALYSIS CATHETER PLACEMENT IN AM. HEELS OFFLOADED WITH PILLOWS. PENDING FOOT X RAYS PER ORDER. PHYSICAL ASSESSMENT DONE. PERITONEAL CATHETER CURRENTLY IN PLACE TO ANTERIOR ABDOMEN, NOT IN USE. FALL PRECAUTIONS IN PLACE, CALL LIGHT WITHIN REACH.
[2018-07-15] MEDS: ATORVASTATIN 20 MG TAB PO SCH (21:35)
[2018-07-15] MEDS: ASCORBIC ACID 500 MG TAB PO SCH (21:36)
[2018-07-15] MEDS: HYDROcodone-ACET 10/325MG TAB PO PRN (21:42)
[2018-07-16 05:00] VITALS: BP 136/55
[2018-07-16] MEDS: ACCU-CHEK COMFORT CURVE STRIP VI SCH ×4 (06:27→22:22)
[2018-07-16] MEDS: InsuLIN REG 1unit/0.01ml Soln (100units/ml) SC SCH ×4 (06:27→22:21)
--- NOTE | 2018-07-16 06:28 | NUR ---
PATIENT REFUSED AM INSULIN PER SLIDING SCALE MORNING BLOOD GLUCOSE 171 PATIENT STATES, "I DON'T WANT ANYTHING FOR IT. I WANT TO WAIT UNTIL AFTER THE PROCEDURE. I'M SCARED I'LL DROP" PATIENT EDUCATED ON IMPORTANCE OF KEEPING TIGHT GLYCEMIC CONTROL, PATIENT VERBALIZED UNDERSTANDING, STILL REFUSES INSULIN.
--- NOTE | 2018-07-16 06:51 | NUR ---
CLOSING NOTE PATIENT RESTING IN BED, EYES CLOSED. PATIENT NPO SINCE MIDNIGHT FOR PENDING DIALYSIS CATHETER PLACEMENT FOR TODAY. ELIQUIS HELD LAST NIGHT FOR PROCEDURE. HEELS OFF LOADED PER MD REQUEST. WILL ENDORSE CARE TO AM SHIFT.
[2018-07-16] MEDS ORDERED: SODIUM CHL 0.9% 1000 ML BAG XX ONE (07:00)
[2018-07-16 07:02] LABS: Potassium 3.7 mmol/L (3.5-5.1)
[2018-07-16 07:07] LABS: Albumin 2.6 g/dL (3.4-5.0); BUN/Creatinine Ratio 4.4; Bilirubin, Total 0.5 mg/dL (0.2-1.0); Phosphorus 5.4 mg/dL (2.5-4.90); Total Protein 6.7 g/dL (6.4-8.2); Uric Acid 8.1 mg/dL (2.6-6.0)
[2018-07-16 08:00] VITALS: BP 145/51
[2018-07-16] MEDS: Nepro With Carbsteady Vanilla 8oz Carton PO SCH ×2 (08:00→18:14)
--- NOTE | 2018-07-16 08:00 | NUR ---
DR. SORENSON NOTIFIED FOR CREATININE CRITICAL VALUE 12.6, WAITING FOR CALL BACK. Addendum: 07/16/18 at 1555 by Micheline Gee RN WRONG PATIENT
--- NOTE | 2018-07-16 08:00 | NUR ---
DR. SORENSON NOTIFIED FOR CREATININE CRITICAL VALUE 12.6, WAITING FOR CALL BACK.
--- NOTE | 2018-07-16 08:21 | NUR ---
PT TRANSPORTED TO [facility] VIA BED FOR DIALYSIS CATHETER PLACEMENT, PRE-OP CHECKLIST COMPLETED, CONSENTS SIGNED, IV ON RIGHT FORE ARM PATENT AND FLUSHING, NO SIGNS OF DISTRESS AT THIS TIME, WILL CONTINUE TO MONITOR.
[2018-07-16] MEDS ORDERED: LIDOCAINE 2%HCL (LOCAL ANESTH.) INJ 20ML MDV ONE ×2 (08:40→10:18)
[2018-07-16] MEDS ORDERED: MIDAZOLAM HCL 1MG/1ML-2 ML VIAL ONE (09:05)
[2018-07-16] MEDS ORDERED: fentaNYL CITRATE 100 MCG/2 ML VL ONE (09:05)
[2018-07-16] MEDS ORDERED: HEPARIN SODIUM (PORCINE) 5000 UNITS/ML 1ML VIAL ONE (09:12)
[2018-07-16] MEDS ORDERED: ceFAZolin 1GM/50ML 50 ML IV ONE (09:57)
--- NOTE | 2018-07-16 10:00 | NUR ---
SCHEDULED MEDICATION NOT GIVEN AT THIS TIME, PT AT [facility] FOR PROCEDURE, WILL GIVE MEDICATIONS ONCE PT IS BACK.
--- NOTE | 2018-07-16 10:38 | NUR ---
DR. KELLEY MADE AWARE OF FOOT XRAY RESULT , HE ORDERED 3 PHASE BONE SCAN TO R/O OSTEOMYELITIS.
--- NOTE | 2018-07-16 11:20 | NUR ---
RECEIVED REPORT FROM JHONNY BALDWIN -[facility] PT S/P TUNNELED DIALYSIS CATHETER PLACEMENT LEFT UPPER CHEST.
--- NOTE | 2018-07-16 11:40 | NUR ---
RECEIVED PT FROM [facility] VIA BED, PT IS AWAKE AND ALERT, NOTED POST OP DRESSING CLEAN DRY AND INTACT, WILL CONTINUE TO MONITOR.
[2018-07-16] MEDS: ASCORBIC ACID 500 MG TAB PO SCH ×2 (12:04→22:21)
[2018-07-16] MEDS: DIGOXIN 0.125 MG TAB PO SCH (12:04)
[2018-07-16] MEDS: LETROZOLE 2.5 MG PO SCH (12:04)
[2018-07-16] MEDS: SERTRALINE HCL 50 MG TAB PO SCH (12:05)
[2018-07-16] MEDS: APIXABAN 5 MG TAB PO SCH ×2 (12:05→22:21)
[2018-07-16] MEDS: AMIODARONE HCL 200 MG TAB PO SCH ×2 (12:05→22:21)
[2018-07-16] MEDS: B-COMPLEX W/ C & FOLIC ACID(NEPHROVITE TAB) PO SCH (12:05)
--- NOTE | 2018-07-16 12:12 | NUR ---
PT OFF FLOOR FOR BONE SCAN.
[2018-07-16] MEDS: CALCIUM ACETATE 667 MG CAP PO SCH ×2 (13:12→18:00)
--- NOTE | 2018-07-16 13:19 | NUR ---
DIALYSIS NURSE JOSÉ MIGUEL CALLED, SHE SAID SHE WILL DO THE HEMODIALYSIS AT 3PM TODAY.
[2018-07-16 13:33] VITALS: BP 133/48
--- NOTE | 2018-07-16 13:35 | NUR ---
assessment Patient is a 72 year old female who is alert and oriented. Patients cognitive abilities are intact. Prior to admission patient lived home with family and functioned with assistance. Per patient she has been weak lately and is asking for rehab at [facility] post discharge. Patient has a fww, cane, wheelchair and shower chair for home use. Patients PCP is Dr Gauthier. Patient is on service with [employer]. Patient feels safe at home and to return home. I informed patient she has a right to speak to a social insurance adviser regarding all care. I informed patient she has a right to participate in any and all discharge planning. Patient is aware of visiting hours on the hospital floor. I informed patient she has a right to privacy. Patient does not have a POA and advanced directive. I have offered patient information on POA and advanced directives. I informed the patient the advantages and benefits of having an Advanced Directive. Patient verbalized understanding and agreed to discharge plan. Addendum: 07/16/18 at 1337 by Kera MEDINA Amended: Links added.
[2018-07-16 16:00] VITALS: BP 134/48
--- NOTE | 2018-07-16 16:18 | NUR ---
DR. SALMON CALLED DR. SALMON ORDERED TO OBTAIN CONSENT FOR REMOVAL OF PERITONEAL DIALYSIS CATHETER ON THURSDAY, NPO AFTER MIDNIGHT ON THURSDAY AND UPDATED PT/PTT. HE WILL EXPLAIN THE PROCEDURE TO THE PT ON THURSDAY
--- NOTE | 2018-07-16 18:14 | NUR ---
PT REFUSED TO EAT AND REFUSED PHOSLO.
--- NOTE | 2018-07-16 18:17 | NUR ---
DR. SORENSON NOTIFIED PT IS REQUESTING FOR SWALLOW EVALUATION, PT IS COMPLAINING OF DIFFICULTY IN SWALLOWING. WAITING FOR CALL BACK. Addendum: 07/16/18 at 1903 by Micheline Gee RN DR. SORENSON ORDERED SWALLOW EVALUATION
--- NOTE | 2018-07-16 18:20 | NUR ---
CARE ENDORSED TO JHONNY CELIS MADE AWARE BONE SCAN RESULTED STILL TO INFORM DR. KELLEY OF THE RESULT.
[2018-07-16] MEDS ORDERED: EPOETIN ALFA 10,000 UNIT/1 ML VIAL SC ONE (21:00)
[2018-07-16 21:40] VITALS: BP 129/48
--- NOTE | 2018-07-16 22:12 | NUR ---
PT REFUSING ELIQUIS;RETURNED MEDICATION TO [facility].
[2018-07-16] MEDS: ATORVASTATIN 20 MG TAB PO SCH (22:20)
[2018-07-16] MEDS: HYDROcodone-ACET 10/325MG TAB PO PRN (23:10)
[2018-07-17 05:07] VITALS: BP 119/45
[2018-07-17] MEDS: InsuLIN REG 1unit/0.01ml Soln (100units/ml) SC SCH ×4 (05:21→22:15)
[2018-07-17] MEDS: HYDROcodone-ACET 10/325MG TAB PO PRN ×3 (05:32→17:51)
[2018-07-17] MEDS: ACCU-CHEK COMFORT CURVE STRIP VI SCH ×4 (05:34→22:15)
--- NOTE | 2018-07-17 07:30 | NUR ---
Opening Shift Note Assumed care of patient, awake and alert. No S/S of distress/SOB or pain. Instructed on POC and to call for assist PRN, will continue to monitor. Bed locked in the lowest position. Bed rails up x2. Call light in reach.
--- NOTE | 2018-07-17 08:45 | NUR ---
PATIENT REFUSING MEDICATION PATIENT REFUSING MISHA AND STATES, "I AM HAVING SURGERY ON THURSDAY FOR MY TOES AND LAST TIME THEY POSTPONED MY PROCEDURE BECAUSE I TOOK MY BLOOD THINNER. AND I DONT WANT TO TAKE MY AMIODARONE I THINK I JUST TOOK IT AT 05:30." EDUCATION PROVIDED ON NEED FOR MEDICATION. PATIENT VERBALIZED UNDERSTANDING AND CONTINUES TO REFUSE.
[2018-07-17] MEDS: CALCIUM ACETATE 667 MG CAP PO SCH ×3 (08:47→17:50)
[2018-07-17] MEDS: B-COMPLEX W/ C & FOLIC ACID(NEPHROVITE TAB) PO SCH (08:47)
[2018-07-17] MEDS: SERTRALINE HCL 50 MG TAB PO SCH (08:48)
[2018-07-17] MEDS: ASCORBIC ACID 500 MG TAB PO SCH ×2 (08:50→21:30)
[2018-07-17] MEDS: AMIODARONE HCL 200 MG TAB PO SCH ×2 (08:51→21:30)
[2018-07-17] MEDS: DIGOXIN 0.125 MG TAB PO SCH (08:51)
[2018-07-17] MEDS: Nepro With Carbsteady Vanilla 8oz Carton PO SCH ×2 (08:52→17:50)
[2018-07-17] MEDS: LETROZOLE 2.5 MG PO SCH (08:52)
[2018-07-17] MEDS: APIXABAN 5 MG TAB PO SCH ×2 (08:53→22:00)
[2018-07-17 09:26] VITALS: BP 124/45
[2018-07-17 12:39] VITALS: BP 126/42
--- NOTE | 2018-07-17 13:48 | NUR ---
SWALLOW EVALUATION COMPLETED. PT ALERT AND ABLE TO FOLLOW BASIC COMMANDS. PT HAS LL TEETH. PT ABLE TO TOLERATE PUREE WITH THIN LIQUIDS. NOTATIONS MADE IN PT FILE. NURSING STAFF ADVISED. RECOMMEND PUREE WITH THIN LIQUIDS, NO STRAWS, ALTERNATE SMALL BITES/SIPS
--- NOTE | 2018-07-17 14:46 | NUR ---
MD MENDOZA NOTIFIED DR. SORENSON OF PATIENTS MEDICATION REFUSAL. NO NEW ORDERS RECEIVED.
--- NOTE | 2018-07-17 14:48 | NUR ---
SPOKE WITH MD PER DR. KELLEY, HE IS PLANNING A PROCEDURE FOR THURSDAY. NO NEW ORDERS RECEIVED.
[2018-07-17 16:27] VITALS: BP 137/47
--- NOTE | 2018-07-17 19:00 | NUR ---
CLOSING NOTE Patient is awake and alert. No S/S of distress/SOB or pain. Bed locked in the lowest position. Bed rails up x2. Call light in reach. Endorsed care to night nurse.
--- NOTE | 2018-07-17 20:00 | NUR ---
Opening Shift Note Assumed care of patient, awake and alert. No S/S of distress/SOB or pain. Instructed on POC and to call for assist PRN, will continue to monitor for changes Q1hr and PRN.
[2018-07-17] MEDS: ATORVASTATIN 20 MG TAB PO SCH (21:30)
[2018-07-17 22:00] VITALS: BP 137/55
[2018-07-18 05:00] VITALS: BP_SYST 100; BP_SYST 125; BP_DIAS 51; BP_DIAS 60
[2018-07-18] MEDS: ACCU-CHEK COMFORT CURVE STRIP VI SCH ×4 (06:28→21:49)
[2018-07-18] MEDS: InsuLIN REG 1unit/0.01ml Soln (100units/ml) SC SCH ×5 (06:29→21:50)
--- NOTE | 2018-07-18 07:24 | NUR ---
Report given to Eliza Ratliff to assume care, patient is resting no distress.
[2018-07-18 07:51] LABS: Basophils # (auto) 0.1 uL; Basophils % (auto) 1.6 % (0.0-2.0); Eosinophils # (auto) 0.1 uL; Eosinophils % (auto) 1.5 % (0.0-7.0); Hematocrit 29.1 % (36.0-46.0); Hemoglobin 9.3 g/dL (12.2-16.2); Lymphocytes # (auto) 1.5 uL; Lymphocytes % (auto) 20.7 % (10.0-50.0); Mean Corpuscular Hemoglobin 32.1 pg (28.0-32.0); Mean Corpuscular Hgb Conc. 32.2 g/dL (32.0-36.0); Mean Corpuscular Volume 99.8 fL (80.0-100.0); Monocytes # (auto) 0.7 uL; Monocytes % (auto) 9.3 % (0.0-12.0); Neutrophils # (auto) 4.7 uL; Neutrophils % (auto) 66.9 % (37.0-80.0); Nucleated Red Blood Cells % 0.1 %; Platelet Count (auto) 134 10^3/uL (140-450); Red Blood Cells 2.91 10^6/uL (4.0-5.20); White Blood Cell 7.1 10^3/uL (4.4-10.8)
[2018-07-18 08:00] VITALS: BP 136/58
[2018-07-18] MEDS: CALCIUM ACETATE 667 MG CAP PO SCH ×3 (08:00→17:56)
--- NOTE | 2018-07-18 08:00 | NUR ---
Opening Shift Note Assumed care of patient, awake, alert, and oriented x4. Patient has no complaints of pain at this time. Patient has IV in right forearm 22g saline locked and flushing well, patient tolerating well. Patient is on 2L NC with no S/S of distress/SOB. Patient has necrosis to bilateral great toes, open to air. Instructed on POC and to call for assist PRN, will continue to monitor for changes Q1hr and PRN. Bed in lowest locked position, call light within reach.
[2018-07-18 08:09] LABS: Calcium 8.6 mg/dL (8.5-10.1); Potassium 3.8 mmol/L (3.5-5.1)
[2018-07-18 08:12] LABS: BUN/Creatinine Ratio 4.5
[2018-07-18] MEDS: Nepro With Carbsteady Vanilla 8oz Carton PO SCH ×2 (08:16→17:35)
[2018-07-18] MEDS: ASCORBIC ACID 500 MG TAB PO SCH ×2 (09:13→21:06)
[2018-07-18] MEDS: SERTRALINE HCL 50 MG TAB PO SCH (09:13)
[2018-07-18] MEDS: DIGOXIN 0.125 MG TAB PO SCH (09:13)
[2018-07-18] MEDS: B-COMPLEX W/ C & FOLIC ACID(NEPHROVITE TAB) PO SCH (09:13)
[2018-07-18] MEDS: LETROZOLE 2.5 MG PO SCH (09:14)
[2018-07-18] MEDS: APIXABAN 5 MG TAB PO SCH ×2 (09:14→21:49)
[2018-07-18] MEDS: AMIODARONE HCL 200 MG TAB PO SCH ×2 (09:14→21:06)
[2018-07-18 09:37] VITALS: BP 136/58
--- NOTE | 2018-07-18 12:39 | NUR ---
WOUND CARE BILATERAL GREAT TOES CLEANSED WITH MILD SOAP AND WATER, PATTED DRY, COVERED WITH BETADINE AND LEFT OPEN TO AIR. PATIENT TOLERATED WELL.
[2018-07-18 12:47] VITALS: BP 134/83
--- NOTE | 2018-07-18 16:30 | NUR ---
OPTIFOAM OPTIFOAM PLACED ON SACRUM FOR PREVENTATIVE MEASURES.
[2018-07-18 16:36] VITALS: BP 128/42
--- NOTE | 2018-07-18 18:33 | NUR ---
END OF SHIFT PATIENT RESTING IN BED. NO S/S OF DISTRESS. INSTRUCTED PATIENT TO CALL PRN. BED IN LOWEST LOCKED POSITION, CALL LIGHT WITHIN REACH. ENDORSED CARE TO JHONNY RANGEL.
[2018-07-18] MEDS: HYDROcodone-ACET 10/325MG TAB PO PRN (21:05)
[2018-07-18] MEDS: ATORVASTATIN 20 MG TAB PO SCH (21:06)
--- NOTE | 2018-07-18 21:30 | NUR ---
Dr. Mcdaniel called and order to get consent for partial amputation of the left and right great toes tomorrow at noon and to call Nursing anhydrous ammonia production supervisor.
[2018-07-18 22:00] VITALS: BP 153/61
--- NOTE | 2018-07-18 22:03 | NUR ---
Paged nursing lawn service supervisor for scheduling of the partial amputation of the left and right great toes for tomorrow at noon as per doctor wants, awaiting reply.
[2018-07-19] VITALS (7 sets, daily range): BP systolic 111–138; BP diastolic 41–79
--- NOTE | 2018-07-19 06:27 | NUR ---
Not given insulin this morning, patient is possible dialysis.
[2018-07-19 06:39] LABS: INR 0.96 (0.9-1.15); Partial Thromboplastin Time 22.3 sec (23.78-33.04); Prothrombin Time 10.3 sec (9.27-12.13)
[2018-07-19] MEDS: ACCU-CHEK COMFORT CURVE STRIP VI SCH ×4 (07:32→22:09)
--- NOTE | 2018-07-19 07:33 | NUR ---
Report given to Eliza Samaniego to assume care, patient is resting no distress noted.
--- NOTE | 2018-07-19 07:45 | NUR ---
Opening Shift Note Assumed care of patient, awake, alert, and oriented x4. Patient has no complaints of pain at this time. Patient has IV in right forearm 22g saline locked and flushing well, patient tolerating well. Patient is on 2L NC with no S/S of distress/SOB. Patient has necrosis to bilateral great toes, open to air. Optifoam applied to sacrum for preventative measures. Instructed on POC and to call for assist PRN, will continue to monitor for changes Q1hr and PRN. Bed in lowest locked position, call light within reach.
[2018-07-19] MEDS: CALCIUM ACETATE 667 MG CAP PO SCH ×3 (08:00→18:12)
[2018-07-19] MEDS: Nepro With Carbsteady Vanilla 8oz Carton PO SCH ×2 (08:00→17:17)
--- NOTE | 2018-07-19 08:30 | NUR ---
DIALYSIS [facility] REFINERY OPERATOR AT BEDSIDE PREPARING TO DIALYZE THE PATIENT. NO S/S OF DISTRESS NOTED AT THIS TIME.
[2018-07-19] MEDS ORDERED: SODIUM CHL 0.9% 1000 ML BAG XX ONE (08:45)
[2018-07-19] MEDS: B-COMPLEX W/ C & FOLIC ACID(NEPHROVITE TAB) PO SCH (09:35)
[2018-07-19] MEDS: APIXABAN 5 MG TAB PO SCH ×2 (09:35→22:08)
[2018-07-19] MEDS: ASCORBIC ACID 500 MG TAB PO SCH ×2 (09:37→22:08)
[2018-07-19] MEDS: LETROZOLE 2.5 MG PO SCH (10:00)
[2018-07-19] MEDS: DIGOXIN 0.125 MG TAB PO SCH (10:00)
[2018-07-19] MEDS: AMIODARONE HCL 200 MG TAB PO SCH ×3 (10:00→22:07)
[2018-07-19] MEDS: SERTRALINE HCL 50 MG TAB PO SCH ×2 (10:00→16:07)
[2018-07-19] MEDS: InsuLIN REG 1unit/0.01ml Soln (100units/ml) SC SCH ×3 (11:30→22:09)
[2018-07-19] MEDS ORDERED: ROPIVACAINE 0.5% (5MG/ML) 20ML AMPULE IJ ONE (11:51)
[2018-07-19] MEDS ORDERED: LIDOCAINE 1% HCL (LOCAL ANESTH.) INJ 20ML MDV ONE (12:15)
--- NOTE | 2018-07-19 12:15 | NUR ---
DIALYSIS DIALYSIS COMPLETE. PER MICA PLATE LAYER HAND, 2L REMOVED, BLOOD PRESSURE 135/56 HR 69. NO S/S OF DISTRESS NOTED AT THIS TIME. WILL CONTINUE TO MONITOR.
--- NOTE | 2018-07-19 12:24 | NUR ---
OFF UNIT PATIENT TAKEN TO PRE-OP VIA BED. NO S/S OF DISTRESS NOTED AT TIME OF DEPARTURE.
[2018-07-19] MEDS ORDERED: CLINDAMYCIN 600MG IV 50 ML IV ONE (12:30)
[2018-07-19] MEDS ORDERED: PROPOFOL 10 MG/ML 20 ML IV ONE (12:33)
[2018-07-19] MEDS ORDERED: PHENYLEPHRINE HCL 10 MG/ML VL IV ONE (12:33)
[2018-07-19] MEDS ORDERED: MIDAZOLAM HCL 1MG/1ML-2 ML VIAL ONE (12:50)
[2018-07-19] MEDS ORDERED: fentaNYL CITRATE 100 MCG/2 ML VL ONE (12:50)
[2018-07-19] MEDS ORDERED: DexAMETHasone SOD PHOS 10MG/1ML VIAL INJ ONE (13:10)
[2018-07-19] MEDS ORDERED: diphenhdrAMINE HCL 50 MG/1 ML VL ONE (13:10)
[2018-07-19] MEDS ORDERED: ePHEDrine SULFATE 50 MG/ML AMP IV PRN (14:15)
[2018-07-19] MEDS ORDERED: ACCU-CHEK COMFORT CURVE STRIP VI ONE (14:15)
[2018-07-19] MEDS ORDERED: MORPHINE SULFATE 4 MG/ML SYR/VIAL IV PRN (14:15)
[2018-07-19] MEDS ORDERED: KETOROLAC TROMETH 30 MG/ML 1ML VIAL IV ONE (14:15)
[2018-07-19] MEDS ORDERED: MIDAZOLAM HCL 1MG/1ML-2 ML VIAL IV PRN (14:15)
[2018-07-19] MEDS ORDERED: LABETALOL HCL 5 MG/ML 4ML SYRINGE IV PRN (14:15)
[2018-07-19] MEDS ORDERED: ONDANSETRON HCL 4 MG/2 ML VIAL IV ONE (14:15)
--- NOTE | 2018-07-19 15:20 | NUR ---
ON UNIT PATIENT TRANSFERRED BACK TO UNIT VIA BED. NO S/S OF DISTRESS NOTED AT TIME OF ARRIVAL. WILL CONTINUE TO MONITOR.
--- NOTE | 2018-07-19 15:30 | NUR ---
Nutrition Follow-up Notes Wt.: 74.3 kg as of yesterday. Pt's with RN at bedside for ongoing dialysis during rounds this morning. Pt's NPO, noted s/p Amputation of the left great toe earlier, to start today on Clear Liquid diet. Est. Needs BW [id number] kcal (27-30 kcal/kgBW), 84-98 gms pro (1.2-1.4 gm/kgBW r/t HD wounds). Will continue to monitor pertinent labs and reassess nutrient need prn. Labs: POC Gluc 188 H, 07/18/18 Gluc 183 H, Cl 96 L, BUN 39 H, Cr 8.70 L; HbA1c 8.4 H, Alb 2.6 L Skin: Rey scale 12, high risk, pt's necrotic right left great to per living advisor. Pls refer to screen printing paster's notes yesterday for further details GI: Pt had 2 BM this morning per living advisor. PES: Increased nutrient needs r/t current/chronic medical condition aeb ESRD on HD, s/p surgery, NPO/ Clear Liquid diet Altered nutrition related lab values r/t current/chronic medical condition aeb elev RFT hypocalcemia, hyperglycemia Will continue to monitor PO intake, skin status, pertinent labs and weight trend. F/u in 2 to 3 days. Rec.: 1.) Advance gradually oral diet (Soft CCHO 60 gms/meal, Renal Std diet) when medically appropriate. 2.) If Albumin level continues trending down, consider Prostat 1 pkt BID. 3.) Consider daily Nephrovite and Asc acid 500 mgs BID. 4.) Continue close supervision during meals. 5.) Refer pt to CDE/RD for further nutrition education and weight monitoring upon discharge. 6.) Continue current plan of care.
[2018-07-19] MEDS ORDERED: EPOETIN ALFA 10,000 UNIT/1 ML VIAL SC ONE (21:00)
[2018-07-19] MEDS: ATORVASTATIN 20 MG TAB PO SCH (22:08)
[2018-07-20] MEDS: HYDROcodone-ACET 10/325MG TAB PO PRN ×3 (02:08→22:49)
[2018-07-20 04:47] VITALS: BP 129/52
[2018-07-20] MEDS: InsuLIN REG 1unit/0.01ml Soln (100units/ml) SC SCH ×4 (06:18→21:43)
[2018-07-20] MEDS: ACCU-CHEK COMFORT CURVE STRIP VI SCH ×4 (06:18→21:43)
--- NOTE | 2018-07-20 07:45 | NUR ---
Opening Shift Note Assumed care of patient, awake, alert, and oriented x4. Patient has no complaints of pain at this time. Patient has IV in right forearm 22g saline locked and flushing well, patient tolerating well. Patient is on room air with no S/S of distress/SOB. Patient has bilateral foot dressings, drainage circled to right. Patient has 2 abdominal incisional wounds, dressings CDI. Optifoam applied to sacrum for preventative measures. Instructed on POC and to call for assist PRN, will continue to monitor for changes Q1hr and PRN. Bed in lowest locked position, call light within reach.
[2018-07-20 07:54] VITALS: BP 111/43
[2018-07-20] MEDS: Nepro With Carbsteady Vanilla 8oz Carton PO SCH ×2 (08:09→17:57)
[2018-07-20] MEDS: CALCIUM ACETATE 667 MG CAP PO SCH ×3 (08:13→18:00)
[2018-07-20 08:20] VITALS: BP 111/43
[2018-07-20] MEDS: SERTRALINE HCL 50 MG TAB PO SCH (09:51)
[2018-07-20] MEDS: APIXABAN 5 MG TAB PO SCH ×2 (09:52→21:42)
[2018-07-20] MEDS: ASCORBIC ACID 500 MG TAB PO SCH ×2 (09:52→21:42)
[2018-07-20] MEDS: B-COMPLEX W/ C & FOLIC ACID(NEPHROVITE TAB) PO SCH (09:52)
[2018-07-20] MEDS: AMIODARONE HCL 200 MG TAB PO SCH ×2 (09:52→21:42)
[2018-07-20] MEDS: DIGOXIN 0.125 MG TAB PO SCH (09:52)
[2018-07-20] MEDS: LETROZOLE 2.5 MG PO SCH (09:54)
--- NOTE | 2018-07-20 10:02 | NUR ---
HOME MEDICATION WAS NOTIFIED BY PHARMACY PATIENT'S HOME MEDICATION LETROZOLE RAN OUT. BROUGHT IN NEW BOTTLE AND MEDICATION WAS TAKEN TO PHARMACY. HOME MEDICATION SHEET PLACED IN PATIENT'S CHART.
[2018-07-20 12:27] VITALS: BP 114/50
--- NOTE | 2018-07-20 16:00 | NUR ---
WOUND CARE PATIENT STATES THAT SHE FEELS IF HER LEFT GREAT TOE IS BEING "CHOKED" BY THE DRESSING. SPOKE TO DR. KELLEY. PER , [place] FOR DRESSING TO BE CHANGED. OLD DRESSING REMOVED FROM LEFT FOOT. MODERATE AMOUNT OF SEROSANGUINEOUS DRAINAGE NOTED ON DRESSING. WOUND TO LEFT GREAT TOE CLEANSED WITH NORMAL SALINE, PATTED DRY WITH STERILE GAUZE, COVERED WITH XEROFORM, STERILE GAUZE, WRAPPED WITH KERLIX AND SECURED WITH TAPE. PATIENT TOLERATED WELL. Addendum: 07/20/18 at 1854 by Evy Iyer RN OLD DRESSING REMOVED FROM RIGHT FOOT. MODERATE AMOUNT OF SEROSANGUINEOUS DRAINAGE NOTED ON DRESSING. WOUND TO RIGHT GREAT TOE CLEANSED WITH NORMAL SALINE, PATTED DRY WITH STERILE GAUZE, COVERED WITH XEROFORM, STERILE GAUZE, WRAPPED WITH KERLIX AND SECURED WITH TAPE. PATIENT TOLERATED WELL.
[2018-07-20 16:43] VITALS: BP 124/51
[2018-07-20] MEDS: ATORVASTATIN 20 MG TAB PO SCH (21:42)
[2018-07-20 22:17] VITALS: BP 98/48
[2018-07-21] VITALS (7 sets, daily range): BP systolic 102–119; BP diastolic 44–76
[2018-07-21] MEDS: ACCU-CHEK COMFORT CURVE STRIP VI SCH ×3 (06:18→17:53)
[2018-07-21] MEDS: InsuLIN REG 1unit/0.01ml Soln (100units/ml) SC SCH ×3 (06:18→17:54)
[2018-07-21] MEDS: Nepro With Carbsteady Vanilla 8oz Carton PO SCH ×2 (08:17→17:54)
[2018-07-21] MEDS: CALCIUM ACETATE 667 MG CAP PO SCH ×3 (09:35→17:54)
[2018-07-21] MEDS: AMIODARONE HCL 200 MG TAB PO SCH (10:00)
[2018-07-21] MEDS: APIXABAN 5 MG TAB PO SCH (10:00)
[2018-07-21] MEDS: ASCORBIC ACID 500 MG TAB PO SCH (10:00)
[2018-07-21] MEDS ORDERED: HEPARIN SODIUM (PORCINE) 5000 UNITS/ML 1ML VIAL IV ONE (14:00)
--- NOTE | 2018-07-21 16:24 | NUR ---
re-assessment Per consult placement at [facility]. Patient and agree to [facility]. MD order has been sent to [place]. Per [facility] pt has chair time T, , S 1:15-4:15 pt will need to be there at 1:00. Per Malinda [facility] has accepted to bed 8-C and accepting MD is Dr. Waldrop. Pt at bedside will transport pt to [facility] in [place]. Reported to Brien BARRY. Pt and agree to discharge plan to [facility]. Addendum: 07/21/18 at 1627 by Kera MEDINA Amended: Links added.
[2018-07-21] MEDS: LETROZOLE 2.5 MG PO SCH (16:26)
[2018-07-21] MEDS: SERTRALINE HCL 50 MG TAB PO SCH (16:27)
[2018-07-21] MEDS: B-COMPLEX W/ C & FOLIC ACID(NEPHROVITE TAB) PO SCH (16:27)
[2018-07-21] MEDS: DIGOXIN 0.125 MG TAB PO SCH (16:27)
--- NOTE | 2018-07-21 19:15 | NUR ---
Discharge instructions given as ordered. All questions and concerns addressed. Patient verbalized understanding. IV removed with catheter intact, pressure dressing applied, dressings changed to both feet. Medication reconciliation form completed and copy given to patient. Home medications held in Pharmacy returned to patient. Report given to Caroline at [facility]. Patient transported by in private vehicle with all personal belongings. No distress noted at time of departure.
[2018-07-22 08:46] LABS: Hepatitis B Surface Antibody Positive
[2018-07-22 09:24] LABS: Hepatitis A Total Antibody Negative
[2018-07-22 09:39] LABS: Hepatitis B Core Total AB Negative
[2018-07-22 09:40] LABS: Hepatitis B Surface Antigen Negative (Negative); Hepatitis C Antibody Negative (Negative)
== END 2018-07-21 19:15 | DRG 907 ==
LOC: WEST WING 11:08
PROVIDERS: ADMIT Internal Medicine Cardiovascular Disease; ATTEND Internal Medicine Cardiovascular Disease
PROC: 0JH63XZ Insertion of Tunneled Vascular Access Device into Chest Subcutaneous Tissue and Fascia, Percutaneous Approach (ICD-10-PCS; 2018-07-16)
PROC: 02H633Z Insertion of Infusion Device into Right Atrium, Percutaneous Approach (ICD-10-PCS; 2018-07-16)
PROC: B2141ZZ Fluoroscopy of Right Heart using Low Osmolar Contrast (ICD-10-PCS; 2018-07-16)
PROC: B244ZZZ Ultrasonography of Right Heart (ICD-10-PCS; 2018-07-16)
PROC: 5A1D70Z Performance of Urinary Filtration, Intermittent, Less than 6 Hours Per Day (ICD-10-PCS; 2018-07-16)
PROC: 0Y6P0Z1 Detachment at Right 1st Toe, High, Open Approach (ICD-10-PCS; 2018-07-19)
PROC: 5A1D70Z Performance of Urinary Filtration, Intermittent, Less than 6 Hours Per Day (ICD-10-PCS; 2018-07-19)
PROC: 0WPGX3Z Removal of Infusion Device from Peritoneal Cavity, External Approach (ICD-10-PCS; principal; 2018-07-19 12:39)
PROC: 0Y6Q0Z3 Detachment at Left 1st Toe, Low, Open Approach (ICD-10-PCS; 2018-07-19 12:39)
PROC: 5A1D70Z Performance of Urinary Filtration, Intermittent, Less than 6 Hours Per Day (ICD-10-PCS; 2018-07-21)
DX: T85.611A Breakdown (mechanical) of intraperitoneal dialysis catheter, initial encounter (principal); I50.23 Acute on chronic systolic (congestive) heart failure; N18.6 End stage renal disease; E11.52 Type 2 diabetes mellitus with diabetic peripheral angiopathy with gangrene; I13.2 Hypertensive heart and chronic kidney disease with heart failure and with stage 5 chronic kidney disease, or end stage renal disease; E11.22 Type 2 diabetes mellitus with diabetic chronic kidney disease; E87.6 Hypokalemia; D63.1 Anemia in chronic kidney disease; E11.40 Type 2 diabetes mellitus with diabetic neuropathy, unspecified; E11.621 Type 2 diabetes mellitus with foot ulcer; E11.21 Type 2 diabetes mellitus with diabetic nephropathy; I48.2 Chronic atrial fibrillation; I49.5 Sick sinus syndrome; Y83.8 Other surgical procedures as the cause of abnormal reaction of the patient, or of later complication, without mention of misadventure at the time of the procedure; I25.5 Ischemic cardiomyopathy; G89.29 Other chronic pain; I25.10 Atherosclerotic heart disease of native coronary artery without angina pectoris; E78.5 Hyperlipidemia, unspecified; L97.519 Non-pressure chronic ulcer of other part of right foot with unspecified severity; L97.529 Non-pressure chronic ulcer of other part of left foot with unspecified severity; Z88.8 Allergy status to other drugs, medicaments and biological substances; Z99.2 Dependence on renal dialysis; Y92.89 Other specified places as the place of occurrence of the external cause; Z88.0 Allergy status to penicillin; I25.2 Old myocardial infarction; Z95.810 Presence of automatic (implantable) cardiac defibrillator; Z86.73 Personal history of transient ischemic attack (TIA), and cerebral infarction without residual deficits; Z85.3 Personal history of malignant neoplasm of breast; Z90.710 Acquired absence of both cervix and uterus; Z95.5 Presence of coronary angioplasty implant and graft; Z79.899 Other long term (current) drug therapy
CPT/HCPCS: 36415; 71045; 73630; 76000; 76942; 78315; 80048; 80053; 82306; 82962; 83036; 83880; 83970; 84100; 84550; 85025; 85610; 85730; 86704; 86706; 86708; 86803; 87340; 90935; 92610; 93005; 99152; G0378; J0690; J0885; J1100; J1815; J2001; J2250; J2704; J3490

== ENCOUNTER → 2018-08-11 | Outpatient (CLI) | payer MEDICARE, OTHER ==
[~2018-08-11] MED LIST changes: +APIX5TAB PO; +HYDR-531 PO
[2018-08-11 12:30] VITALS: BP 121/51
[2018-08-11 12:52] VITALS: BP 126/51
--- NOTE | 2018-08-11 12:52 | NUR ---
Pre-Op Discharge Summary: See e-MAR for any medications given for this visit. Pre-op orders received and carried out per MD of EKG, LABS and chest xrays. Patient given a copy of EKG with instructions to go to [facility] out patient for further follow up care.
[2018-08-11 15:53] LABS: Basophils # (auto) 0.1 uL; Eosinophils # (auto) 0.1 uL; Hemoglobin 10.3 g/dL (12.2-16.2); Lymphocytes # (auto) 1.3 uL; Monocytes # (auto) 0.5 uL; Platelet Count (auto) 198 10^3/uL (140-450)
[2018-08-11 15:55] LABS: Basophils % (auto) 1.5 % (0.0-2.0); Eosinophils % (auto) 0.9 % (0.0-7.0); Hematocrit 31.1 % (36.0-46.0); Lymphocytes % (auto) 17.2 % (10.0-50.0); Mean Corpuscular Hemoglobin 34.2 pg (28.0-32.0); Mean Corpuscular Hgb Conc. 33.1 g/dL (32.0-36.0); Mean Corpuscular Volume 103.2 fL (80.0-100.0); Monocytes % (auto) 6.2 % (0.0-12.0); Neutrophils # (auto) 5.8 uL; Neutrophils % (auto) 74.2 % (37.0-80.0); Nucleated Red Blood Cells % 0.3 %; Red Blood Cells 3.01 10^6/uL (4.0-5.20); Red Cell Distribution Width 18.2 % (11.8-14.3); White Blood Cell 7.9 10^3/uL (4.4-10.8)
[2018-08-11 16:02] LABS: INR 1.2 (0.9-1.15); Partial Thromboplastin Time 38.3 sec (23.64-32.05)
[2018-08-11 16:08] LABS: BUN/Creatinine Ratio 5.4; Calcium 8.1 mg/dL (8.5-10.1)
[2018-08-11 16:12] LABS: Potassium 2.9 mmol/L (3.5-5.1)
== END | disposition home or self-care (01) ==
LOC: CHF HDHVI 12:22
PROVIDERS: ATTEND Internal Medicine Cardiovascular Disease
DX: Z01.812 Encounter for preprocedural laboratory examination (principal); D64.9 Anemia, unspecified; R79.1 Abnormal coagulation profile; I11.0 Hypertensive heart disease with heart failure; I50.9 Heart failure, unspecified; J90 Pleural effusion, not elsewhere classified
CPT/HCPCS: 36415; 71046; 80048; 85025; 85610; 85730; 93005; G0463

== ENCOUNTER 2018-08-16 11:24 | Inpatient (IN) | payer MEDICARE, OTHER | END 2018-08-27 17:13 | disposition home or self-care (01) | LOC: CATH 11:24 → TELE-EAST 08-18 23:28 | PROC: 047T3ZZ Dilation of Right Peroneal Artery, Percutaneous Approach (ICD-10-PCS; principal; 2018-08-20 15:14) | PROC: 047R3ZZ Dilation of Right Posterior Tibial Artery, Percutaneous Approach (ICD-10-PCS; 2018-08-20 15:14) | PROC: 047P3ZZ Dilation of Right Anterior Tibial Artery, Percutaneous Approach (ICD-10-PCS; 2018-08-20 15:14) | PROC: 04CR3ZZ Extirpation of Matter from Right Posterior Tibial Artery, Percutaneous Approach (ICD-10-PCS; 2018-08-20 15:14) | PROC: 04CP3ZZ Extirpation of Matter from Right Anterior Tibial Artery, Percutaneous Approach (ICD-10-PCS; 2018-08-20 15:14) | PROC: B41F1ZZ Fluoroscopy of Right Lower Extremity Arteries using Low Osmolar Contrast (ICD-10-PCS; 2018-08-20 15:14) | PROC: 04CT3ZZ Extirpation of Matter from Right Peroneal Artery, Percutaneous Approach (ICD-10-PCS; 2018-08-20 15:14) | DX: E11.52 Type 2 diabetes mellitus with diabetic peripheral angiopathy with gangrene (principal); N18.6 End stage renal disease; D68.59 Other primary thrombophilia; I12.0 Hypertensive chronic kidney disease with stage 5 chronic kidney disease or end stage renal disease; E11.21 Type 2 diabetes mellitus with diabetic nephropathy; E11.621 Type 2 diabetes mellitus with foot ulcer; E11.40 Type 2 diabetes mellitus with diabetic neuropathy, unspecified; I49.5 Sick sinus syndrome; I48.2 Chronic atrial fibrillation; L97.509 Non-pressure chronic ulcer of other part of unspecified foot with unspecified severity; Z99.2 Dependence on renal dialysis; E11.22 Type 2 diabetes mellitus with diabetic chronic kidney disease; I25.10 Atherosclerotic heart disease of native coronary artery without angina pectoris; Z86.73 Personal history of transient ischemic attack (TIA), and cerebral infarction without residual deficits; D63.1 Anemia in chronic kidney disease; I73.9 Peripheral vascular disease, unspecified; Z89.411 Acquired absence of right great toe ==

== ENCOUNTER 2019-02-09 16:50 | Inpatient (IN) | payer MEDICARE, OTHER ==
[~2019-02-09] VITALS: Ht 30.5 cm; Wt 70.1 kg
[~2019-02-09 16:50] MED LIST changes: -DIGOXIN 0.125 MG TAB PO ONE; -DIGOXIN 0.125 MG TAB PO SCH; -DOBUTamine 1000MCG/ML 250 ML IV SCH; -FUROSEMIDE INJECTION 500 MG in D5W 5% 450 ML IV SCH; -MORPHINE SULF INJ 2 MG/ML SYRINGE 1ML IV PRN; -NITROGLYCERIN 0.4 MG SL TAB SL PRN; -RIVAROXABAN 10 MG TAB PO SCH
--- NOTE | 2019-02-09 16:50 | NUR ---
Direct Admit Note SHAMEKA COLBERT admitted to Telemetry/MS unit as a direct admit per Dr. Gauthier's order. Patient oriented to Mami Tinoco, primary RN, unit, room, bed, and unit policies regarding patient care and visiting hours. Patient now on continuous telemetry monitoring, tele box # [id number] and telemetry reading on arrival to unit is PACED. Patient placed on bedside oxygen, weighed by bedscale and encouraged to call if they need something. All questions and concerns addressed, patient verbalized understanding. Dr. Gauthier notified of patients arrival and admit orders received.
--- NOTE | 2019-02-09 18:00 | NUR ---
IV insertion IV access obtained, via clean sterile technique by inserting 24 gauge catheter at right upper arm after one attempt. IV secured properly. No trauma to site. Patient tolerated well.
--- NOTE | 2019-02-09 18:50 | NUR ---
Admit orders received from Dr. Gauthier. Also added to the order as per Dr. Gauthier, Digoxin 0.125mcg PO daily and after dialysis schedule.
[2019-02-09] MEDS ORDERED: NITROGLYCERIN 0.4 MG SL TAB SL PRN (19:00)
[2019-02-09] MEDS ORDERED: DEXTROSE (50%) 50ML SYRG IV PRN (19:00)
[2019-02-09] MEDS ORDERED: MORPHINE SULF INJ 2 MG/ML SYRINGE 1ML IV PRN (19:00)
[2019-02-09] MEDS ORDERED: DIGOXIN 0.125 MG TAB PO ONE (19:00)
--- NOTE | 2019-02-09 19:00 | NUR ---
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 Declined to remove the dressings on both feet.
--- NOTE | 2019-02-09 21:12 | NUR ---
Midline Placement: Patient educated on need for midline placement. All risks and benefits explained and all questions and concerns addresses prior to procedure. 4FR 20cm midline inserted via RIGHT BASILIC vein using Ultrasound. Sterile technique utilized. Blood return obtained from SINGLE lumen and flushed easily with NS using proper technique. Midline secured with saline lock; biodisc and occlusive dressing applied. Primary RN notified. Midline lot #[id number]
[2019-02-09] MEDS: DOBUTamine 1000MCG/ML 250 ML IV SCH (21:22)
[2019-02-09 22:00] VITALS: BP 105/65
[2019-02-09] MEDS: ACCU-CHEK COMFORT CURVE STRIP VI SCH (22:20)
[2019-02-09] MEDS: InsuLIN REG 1unit/0.01ml Soln (100units/ml) SC SCH (22:31)
[2019-02-10] MEDS: FUROSEMIDE INJECTION 500 MG in D5W 5% 450 ML IV SCH ×2 (01:58→19:16)
--- NOTE | 2019-02-10 03:32 | NUR ---
DR YAS GREENWOOD PATIENT COMPLAINS OF HEADACHE AND REQUESTING TYLENOL. DR YAS GREENWOOD, WILL AWAIT NEW ORDERS. ICE PACK PLACED BEHIND PATIENTS NECK FOR TEMPORARY RELIEF. WILL CONTINUE TO ROUND Q1 HR AND PRN.
[2019-02-10 05:22] VITALS: BP 149/90
--- NOTE | 2019-02-10 06:05 | NUR ---
MRSA SWAB SENT TO LAB PER ORDERS
[2019-02-10] MEDS: ACCU-CHEK COMFORT CURVE STRIP VI SCH ×4 (06:25→21:41)
[2019-02-10] MEDS: InsuLIN REG 1unit/0.01ml Soln (100units/ml) SC SCH ×4 (06:30→21:58)
[2019-02-10] MEDS: DOBUTamine 1000MCG/ML 250 ML IV SCH ×2 (07:57→21:39)
--- NOTE | 2019-02-10 08:00 | NUR ---
Opening Shift Note Assumed care of patient, awake and alert. No S/S of distress/SOB or pain. Instructed on POC and to call for assist PRN, will continue to monitor for changes Q1hr and PRN.
[2019-02-10 09:00] VITALS: BP 119/30
[2019-02-10] MEDS: RIVAROXABAN 10 MG TAB PO SCH (09:32)
[2019-02-10] MEDS ORDERED: DIGOXIN 0.125 MG TAB PO SCH ×2 (10:00)
--- NOTE | 2019-02-10 10:55 | NUR ---
WOUND CARE NOTE: WOUND CONSULT ORDERED FOR PATIENT OF "LOW JOSÉ LUIS OF 17". PATIENT ADMITTED TO [facility] WITH DIAGNOSIS OF CHF. PATIENT CAN SELF TURN/REPOSITION SELF. 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 PATIENT HAD RECENT SURGERY, CONSISTING OF SKIN GRAFT APPLICATION TO BOTH WOUND # [address] COVINGTON AT [facility]. PATIENT REFUSES TO ALLOW STAFF TO REMOVE DRESSINGS FOR SKIN/WOUND ASSESSMENT. PATIENT WAS EDUCATED BY SURGEON TO LEAVE DRESSINGS INTACT TILL HIS NEXT OUT PATIENT POST OPERATIVE VISIT AT [facility]. NO FURTHER SKIN/WOUND ISSUES NOTED. SKIN WOUND CARE PLAN IMPLEMENTED FOR LOW JOSÉ LUIS SCORE OF 17. NO WOUND CARE MONITORING IS NEEDED AT THIS TIME.
--- NOTE | 2019-02-10 11:54 | NUR ---
Received a fax of medication list from [facility]. Left a message to Dr. Gauthier if those list of medications be added to the order. Waiting for call back.
[2019-02-10 13:00] VITALS: BP 104/45
--- NOTE | 2019-02-10 13:00 | NUR ---
Dr. Gauthier call back, instructions received to restart the home medications listed that will be brought by the .
--- NOTE | 2019-02-10 14:30 | NUR ---
Home medication list received from patient's of Amiodarone, Eliquis, Letrozole and Simvastatin. Informed Dr. Gauthier about this, orders received to restart medications except Eliquis. Continue care.
[2019-02-10 17:00] VITALS: BP 125/27
--- NOTE | 2019-02-10 17:29 | NUR ---
Spoke with Dr. Gauthier, order for Digoxin revised and to be given every other day after dialysis.
[2019-02-10] MEDS: ATORVASTATIN 20 MG TAB PO SCH (21:40)
[2019-02-10] MEDS: AMIODARONE HCL 200 MG TAB PO SCH (21:40)
[2019-02-10 22:00] VITALS: BP 106/76
[2019-02-11] MEDS: HYDROcodone-ACET 10/325MG TAB PO PRN (05:57)
[2019-02-11] MEDS: ACCU-CHEK COMFORT CURVE STRIP VI SCH ×4 (06:38→21:52)
[2019-02-11] MEDS: InsuLIN REG 1unit/0.01ml Soln (100units/ml) SC SCH ×4 (06:39→21:52)
--- NOTE | 2019-02-11 07:46 | NUR ---
OPENING NOTE Assumed care of patient from [facility] RN, Karina. Patient resting in bed with eyes closed, even rise and fall of chest noted. No S/S of distress/SOB or pain. Nasal cannula in place, connected to 3L O2. IV pumps infusing Lasix @ 20mls/hr and Dobutamine @ 20mls/hr. Bed in lowest, locked position with side rails up x2. Fall precautions in place and call light within reach. Will continue to monitor for changes Q1hr and PRN.
[2019-02-11 07:56] LABS: Hemoglobin 10.5 g/dL (12.2-16.2); Red Blood Cells 3.08 10^6/uL (4.0-5.20)
[2019-02-11 07:58] LABS: Mean Corpuscular Hgb Conc. 32.7 g/dL (32.0-36.0); Mean Corpuscular Volume 104.1 fL (80.0-100.0); Platelet Count (auto) 57 10^3/uL (140-450)
[2019-02-11 08:03] LABS: Calcium 8.1 mg/dL (8.5-10.1); Potassium 3.9 mmol/L (3.5-5.1)
[2019-02-11 08:04] LABS: % Iron Saturation 106.4 % (15-50)
[2019-02-11 08:05] LABS: BUN/Creatinine Ratio 4.3
[2019-02-11 08:09] LABS: Red Cell Distribution Width 20.5 % (11.8-14.3)
[2019-02-11 08:10] LABS: Band Neutrophils % (manual) 0; Basophils % (manual) 0 (0.0-2.0); Blast Cells 0; Metamyelocytes % 0; Myelocytes % 0; Promyelocytes % 0; Reactive Lymphocytes 0
[2019-02-11 08:50] LABS: Eosinophils % (manual) 2 (0-7); Lymphocytes % (manual) 20 (10.0-50.0); Monocytes % (manual) 6 (0-12)
[2019-02-11 09:00] VITALS: BP 90/37
--- NOTE | 2019-02-11 10:31 | NUR ---
FAMILY Patient's spouse, Kasi, at bedside.
[2019-02-11] MEDS: DOBUTamine 1000MCG/ML 250 ML IV SCH (11:20)
[2019-02-11] MEDS: RIVAROXABAN 10 MG TAB PO SCH (11:21)
[2019-02-11] MEDS: LETROZOLE 2.5 MG TABLET PO SCH (11:21)
[2019-02-11] MEDS: AMIODARONE HCL 200 MG TAB PO SCH ×2 (11:21→21:52)
[2019-02-11 14:00] VITALS: BP 80/32
--- NOTE | 2019-02-11 15:00 | NUR ---
Nutrition consult/assessment Notes please see attached link for complete assessment Est. Needs BW 66 [id number] kcal (30-33 kcal/kgBW), 79-92 gms pro (1.2-1.4 gms/kgBW r/t HD). Will continue to monitor pertinent labs and reassess nutrient need prn Addendum: 02/11/19 at [address] Amended: Links added.
[2019-02-11 17:00] VITALS: BP 130/83
--- NOTE | 2019-02-11 17:05 | NUR ---
AT BEDSIDE Dr. Gauthier at patient's bedside.
--- NOTE | 2019-02-11 17:25 | NUR ---
ARM COMPRESSIONS Bilateral arms wrapped with ryan bandages per Dr. Gauthier's request.
[2019-02-11] MEDS: DIGOXIN 0.125 MG TAB PO SCH (18:14)
--- NOTE | 2019-02-11 19:30 | NUR ---
CLOSING NOTE Endorsed care of patient to NOC RN, .
--- NOTE | 2019-02-11 19:30 | NUR ---
Opening Shift Note Assumed care of patient, awake and alert. No S/S of distress/SOB or pain. Safety measures in place bed in lowest position, side rails x2 up, and call light within reach. Instructed on POC and to call for assist PRN, will continue to monitor for changes Q1hr and PRN.
[2019-02-11] MEDS: ATORVASTATIN 20 MG TAB PO SCH (21:52)
[2019-02-11] MEDS: FUROSEMIDE INJECTION 500 MG in D5W 5% 450 ML IV SCH (21:52)
[2019-02-11 22:00] VITALS: BP 134/104
[2019-02-12] MEDS: DOBUTamine 1000MCG/ML 250 ML IV SCH ×2 (00:35→09:29)
[2019-02-12 04:37] VITALS: BP 106/66
[2019-02-12 06:27] LABS: Hematocrit 33.1 % (36.0-46.0); Mean Corpuscular Hemoglobin 34.5 pg (28.0-32.0); Mean Corpuscular Hgb Conc. 33.4 g/dL (32.0-36.0); Mean Corpuscular Volume 103.4 fL (80.0-100.0); Platelet Count (auto) 50 10^3/uL (140-450); White Blood Cell 5.3 10^3/uL (4.4-10.8)
[2019-02-12 06:41] LABS: Calcium 8.1 mg/dL (8.5-10.1); Potassium 4.1 mmol/L (3.5-5.1)
[2019-02-12 06:43] LABS: BUN/Creatinine Ratio 4.2
[2019-02-12 06:51] LABS: Red Cell Distribution Width 20.7 % (11.8-14.3)
[2019-02-12 06:55] LABS: Band Neutrophils % (manual) 0; Basophils % (manual) 0 (0.0-2.0); Blast Cells 0; Metamyelocytes % 0; Myelocytes % 0; Promyelocytes % 0; Reactive Lymphocytes 0
[2019-02-12] MEDS: InsuLIN REG 1unit/0.01ml Soln (100units/ml) SC SCH ×4 (06:58→22:00)
[2019-02-12] MEDS: ACCU-CHEK COMFORT CURVE STRIP VI SCH ×4 (06:58→22:11)
[2019-02-12 07:41] LABS: Eosinophils % (manual) 3 (0-7); Lymphocytes % (manual) 20 (10.0-50.0); Monocytes % (manual) 10 (0-12)
--- NOTE | 2019-02-12 07:55 | NUR ---
OPENING SHIFT NOTE: PATIENT AWAKE A/OX4. RESPIRATIONS EVEN AND UNLABORED, NASAL CANNULA IN USE. PATIENT WEARING RESTRICTED ARM BAND FOR LEFT BREAST CANCER. PATIENT BILATERAL ARM WRAPPED LOOSELY IN DARIA BANDAGE FOR SWELLING. NON-PITTING EDEMA NOTED, PER PATIENT SWELLING HAS GONE DOWN. PATIENT HR 70 PACED, JOSY CATH NOTED TO LEFT UPPER CHEST. UPDATED ON PLAN OF CARE. CALL LIGHT WITHIN REACH. BED IN LOWEST LOCKED POSITION.
[2019-02-12 09:41] VITALS: BP 103/43
[2019-02-12] MEDS: LETROZOLE 2.5 MG TABLET PO SCH (09:47)
[2019-02-12] MEDS: AMIODARONE HCL 200 MG TAB PO SCH ×2 (09:48→22:11)
[2019-02-12] MEDS: RIVAROXABAN 10 MG TAB PO SCH (09:48)
--- NOTE | 2019-02-12 09:48 | NUR ---
PATIENT REQUESTING TO TAKE HALF OF THE ORDERED DOSE OF AMIODARONE. RETURNED OTHER TABLET TO [facility].
[2019-02-12 12:49] VITALS: BP 109/39
[2019-02-12] MEDS ORDERED: ALBUMIN 25% 100 ML IV ONE (14:30)
--- NOTE | 2019-02-12 14:58 | NUR ---
MD SORENSON ROUNDING.
[2019-02-12] MEDS ORDERED: SODIUM CHL 0.9% 1000 ML BAG XX ONE (15:30)
[2019-02-12] MEDS ORDERED: EPOETIN ALFA 10,000 UNIT/1 ML VIAL IV ONE (15:30)
--- NOTE | 2019-02-12 15:31 | NUR ---
ABSTRACT MANAGER AT BEDSIDE.
[2019-02-12 16:52] VITALS: BP 97/53
--- NOTE | 2019-02-12 18:17 | NUR ---
DIALYSIS COMPLETED: BP 108/40 HR 73. NO C/O PAIN. JANITORIAL CLEANER CHANGED PORTS AND PICC LINE DRESSING. 1450 TAKEN OFF, PATIENT TOLERATED WELL. PHARMACY INFORMED THIS RN EPOGEN NOT TO BE GIVEN DUE TO HGB LEVEL 11.0.
[2019-02-12] MEDS: FUROSEMIDE INJECTION 500 MG in D5W 5% 450 ML IV SCH (19:09)
--- NOTE | 2019-02-12 19:10 | NUR ---
Opening Shift Note Assumed care of patient, awake and alert. sitting at bedside. No S/S of distress/SOB or pain. Safety measures in place bed in lowest position side rails x2 up, and call light within reach. Instructed on POC and to call for assist PRN, will continue to monitor for changes Q1hr and PRN.
--- NOTE | 2019-02-12 19:10 | NUR ---
CLOSING SHIFT NOTE: AT BEDSIDE. PATIENT SITTING UP IN BED, RESPIRATIONS EVEN AND UNLABORED. CARE ENDORSED TO ALVARO BARRY.
[2019-02-12 22:00] VITALS: BP 156/103
--- NOTE | 2019-02-12 22:00 | NUR ---
Wound consult placed for skin tears on right hand. Pictures taken. Will continue to monitor every hour and as needed.
[2019-02-12] MEDS: ATORVASTATIN 20 MG TAB PO SCH (22:11)
[2019-02-12] MEDS: HYDROcodone-ACET 10/325MG TAB PO PRN (22:12)
[2019-02-13] MEDS: DOBUTamine 1000MCG/ML 250 ML IV SCH ×3 (00:15→22:55)
[2019-02-13 06:00] VITALS: BP 99/43
[2019-02-13] MEDS: ACCU-CHEK COMFORT CURVE STRIP VI SCH ×4 (06:30→22:30)
[2019-02-13] MEDS: InsuLIN REG 1unit/0.01ml Soln (100units/ml) SC SCH ×4 (06:35→22:30)
--- NOTE | 2019-02-13 08:11 | NUR ---
OPENING SHIFT NOTE: PATIENT AWAKE, RESTING IN BED HIGH FOWLERS. CHEST RISE AND FALL EQUAL AND UNLABORED. PATIENT REMOVED DARIA BANDAGES ON UPPER EXTREMITIES, THIS RN RE-APPLIED PER MD'S ORDERS. RIGHT HAND GAUZE NOTED MINIMAL DRAINAGE, PER PATIENT SHE "TRIED TO SLIDE UP IN BED AND TORN SKIN ON MY HAND." NO PAIN REPORTED. PATIENT BED IN LOWEST LOCKED POSITION, CALL LIGHT WITHIN REACH. WILL CONTINUE TO MONITOR.
[2019-02-13 08:48] VITALS: BP 99/52
[2019-02-13] MEDS: AMIODARONE HCL 200 MG TAB PO SCH ×2 (10:00→22:30)
[2019-02-13] MEDS: RIVAROXABAN 10 MG TAB PO SCH (10:06)
[2019-02-13] MEDS: LETROZOLE 2.5 MG TABLET PO SCH (10:06)
--- NOTE | 2019-02-13 10:57 | NUR ---
VERIFIED BACK THAT LAB RECEIVED STOOL SAMPLE FOR C.DIFF.
--- NOTE | 2019-02-13 10:58 | NUR ---
FULL LINEN CHANGE PERFORMED. CARLOS CARE DONE, NEW GOWN GIVEN. BARRIER CREAM APPLIED TO BUTTOCKS. PATIENT TOLERATED WELL.
--- NOTE | 2019-02-13 12:06 | NUR ---
WOUND CARE NOTE: Wound care in to see patient per wound care request regarding R hand and R 2nd digit wounds. Bedside nurse took photograph of patient's wounds upon discovery for reference. Patient is 73 years old female with admitting diagnosis of CHF. Patient is resting in bed in Rm. 294B. She's awake, alert and oriented. Patient is in no stated pain at this time. She's able to assist in turning and repositioning and her Rey score is 17. ON report's patient sustained two laceration to Rt dorsal hand (1.5x1cm) and dorsal R 2nd digit (1.2x0.5cm) when she accidentally hit the bed rails. Wounds are red with minimal bleeding, periwound is ecchymotic. Patient's arms are edematous and ecchymotic and has sensitive skin. Cleansed patient's wounds to Rt hand with wound cleanser, patted dry with gauze, applied Thera honey gauze, padded with layer of gauze pads, wrap with Kerlix and secured with tape. Patient tolerated well. No pressure injury noted. Patient's bilateral foot has clean and dry dressing s/p amputation of bilateral great toe with skin graft application. Patient seen by wound care Marlyn on 02/10/19 and refusing to have the BLE dressing remove per her surgeon's instructions. Left patient resting in bed, call light within reach, all safety precautions in placed. No further wound care monitoring needed at this time. RECOMMENDATION: Nursing to continue EOD/PRN dressing change to Rt hand wounds per MD order, continuation of all other wound care orders prescribed by MD, continue with skin/wound plan of care. Addendum: 02/13/19 at 1803 by Connie Cerda RN Amended: Links added.
[2019-02-13 12:44] VITALS: BP 117/40
--- NOTE | 2019-02-13 14:04 | NUR ---
FULL LINEN CHANGE COMPLETED. AT BEDSIDE THOUGHT IT WAS OKAY TO HAVE PATIENT SIT AT SIDE OF BED FOR LUNCH. PATIENT HAD BM SOILING ENTIRE GOWN, ARM GAUZE ROLL, AND LINENS. THIS RN AND [place], ASSISTED WITH PATIENT CLEAN UP. LIQUID STOOL NOTED, C-DIFF RESULTS STILL PENDING. BARRIER CREAM APPLIED. ARM/HAND GAUZE ROLL RE-DRESSED. NO C/O PAIN.
--- NOTE | 2019-02-13 14:24 | NUR ---
MD SORENSON AT BEDSIDE: DISCUSSED POC WITH THIS RN AND PATIENT/PATIENT'S FAMILY. PLAN FOR D/C TOMORROW, PATIENT HAS A FUSING LINE INSPECTOR APPOINTMENT THURSDAY, THEN F/U IN CHF CLINIC THURSDAY. ARM BANDAGE TO BE WRAPPED ONLY IN DARIA BANDAGE. DARIA BANDAGE HAVE ELASTIC RECOIL. ALSO DC LASIX GTT. PATIENT AND THIS RN VERBALIZED UNDERSTANDING.
--- NOTE | 2019-02-13 15:19 | NUR ---
PATIENT REQUESTED THE RN TO CHECK BLOOD SUGAR. 180 AT THIS TIME, PATIENT STATES. "I JUST HAD A WEIRD FEELING."
[2019-02-13 17:12] VITALS: BP 116/42
[2019-02-13] MEDS: DIGOXIN 0.125 MG TAB PO SCH (17:12)
--- NOTE | 2019-02-13 19:20 | NUR ---
CARE ENDORSED TO DENIS BARRY.
--- NOTE | 2019-02-13 20:30 | NUR ---
open note assumed care of pt. upon entering room pt awake and alert. pt #L NC no distress noted or expressed. pt updated on plan of care, no questions at this time. pt has dobutamine 5mcg/kg/min running with no orders to titrate. pt bed locked, low and 2x rails up. pt has call light in reach, encouraged by this nurse to call as needed. no additional questions or concerns at this time. this nurse will round q1hr and prn.
[2019-02-13 22:00] VITALS: BP 117/54
[2019-02-13] MEDS: ATORVASTATIN 20 MG TAB PO SCH (22:30)
[2019-02-14 05:00] VITALS: BP 113/45
[2019-02-14] MEDS: ACCU-CHEK COMFORT CURVE STRIP VI SCH ×2 (06:55→11:42)
[2019-02-14] MEDS: InsuLIN REG 1unit/0.01ml Soln (100units/ml) SC SCH ×2 (06:55→11:30)
[2019-02-14 08:50] VITALS: BP 112/46
[2019-02-14] MEDS: LETROZOLE 2.5 MG TABLET PO SCH (10:00)
[2019-02-14] MEDS: RIVAROXABAN 10 MG TAB PO SCH (10:00)
[2019-02-14] MEDS: AMIODARONE HCL 200 MG TAB PO SCH (10:00)
[2019-02-14] MEDS: DOBUTamine 1000MCG/ML 250 ML IV SCH (11:12)
--- NOTE | 2019-02-14 12:00 | NUR ---
DRESSING CHANGED TO LEFT HAND. NO SIGNS OF INFECTION, SIDE STILL BLEEDING. THE SKIN TEAR IS DRAINING BLOOD. WOUND WAS COVERED WITH DRY GAUZE.
[2019-02-14 13:00] VITALS: BP 101/69
--- NOTE | 2019-02-14 13:00 | NUR ---
LABORATORY WAS UNABLE TO OBTAIN BLOOD PERIPHERALLY, BLOOD DROWN FROM MIDLINE BY RN, FLUSHED POR PROTOCOL.
--- NOTE | 2019-02-14 16:25 | NUR ---
PATIENTS WAS VERY ANXIOUS AND COMMING INTO THE NURSE'S STATION EVERY [address] SORENSON AND I RECEIVED A TELEPHONE ORDER TO DISCHARGE PATIENT AND TO FOLLOW UP WITH DR SORENSON AN OUT PATIENT IN ONE WEEK.
--- NOTE | 2019-02-14 16:28 | NUR ---
PATIENT IN BED, CLEAN AND DRY. PROTECTANT CREAM Z-GUARD APPLIED TO BOTOX. AT BEDSIDE. PATIENT WOULD LIKE TO GO HOME TODAY.
[2019-02-14 17:00] VITALS: BP 123/52
[2019-02-14 17:19] VITALS: BP 108/40
--- NOTE | 2019-02-14 18:46 | NUR ---
PATIENT WAS DISCHARGED HOME WITH . ALL INSTRUCTIONS GIVEN TO PATIENT, HOME MEDICATION RETRIEVED FROM PHARMACY AND GIVEN TO . PATIENT LEFT THE UNIT IN A WHEELED CHAIR, WITH OXYGEN, HAS OXYGEN IN THE CAR. PATIENT WAS AWAKE, ALERT AND ORIENTED, PICTURES TAKEN FROM THE HAND WOUND. PATIENT DENIES DISCOMFORT.
[2019-02-15] MEDS ORDERED: SODIUM CHL 0.9% 1000 ML BAG XX ONE (07:00)
== END 2019-02-14 18:50 | disposition home or self-care (01) | DRG 291 ==
LOC: TELE-WESTW 16:50
PROVIDERS: ADMIT Internal Medicine Cardiovascular Disease; ATTEND Internal Medicine Cardiovascular Disease
PROC: 5A1D70Z Performance of Urinary Filtration, Intermittent, Less than 6 Hours Per Day (ICD-10-PCS; principal; 2019-02-12)
DX: I13.2 Hypertensive heart and chronic kidney disease with heart failure and with stage 5 chronic kidney disease, or end stage renal disease (principal); I50.43 Acute on chronic combined systolic (congestive) and diastolic (congestive) heart failure; N18.6 End stage renal disease; D68.59 Other primary thrombophilia; E11.52 Type 2 diabetes mellitus with diabetic peripheral angiopathy with gangrene; I48.20 Chronic atrial fibrillation, unspecified; Z99.2 Dependence on renal dialysis; E11.22 Type 2 diabetes mellitus with diabetic chronic kidney disease; D64.9 Anemia, unspecified; Z85.3 Personal history of malignant neoplasm of breast; Z88.0 Allergy status to penicillin; Z88.8 Allergy status to other drugs, medicaments and biological substances; D75.89 Other specified diseases of blood and blood-forming organs; E11.40 Type 2 diabetes mellitus with diabetic neuropathy, unspecified; E11.621 Type 2 diabetes mellitus with foot ulcer; I25.5 Ischemic cardiomyopathy; I49.5 Sick sinus syndrome; K25.9 Gastric ulcer, unspecified as acute or chronic, without hemorrhage or perforation; L97.509 Non-pressure chronic ulcer of other part of unspecified foot with unspecified severity; Z79.01 Long term (current) use of anticoagulants; Z82.3 Family history of stroke; Z82.49 Family history of ischemic heart disease and other diseases of the circulatory system; Z86.73 Personal history of transient ischemic attack (TIA), and cerebral infarction without residual deficits
CPT/HCPCS: 36415; 71046; 80048; 82306; 82962; 83540; 83550; 83880; 83970; 84550; 85007; 85027; 87081; 87493; 90935; G0378; G0463; J0885; J1642; J1815; P9047

== ENCOUNTER → 2019-02-09 | Outpatient (CLI) | payer MEDICARE, OTHER ==
[~2019-02-09] MED LIST changes: -ASPI81CH43 PO; -BUME1TAB PO; -CALC0.25 PO; -CHOL500021 PO; +CLIN300C8 PO; +DIGO0.1262 PO; +DIGOXIN 0.125 MG TAB PO ONE; +DIGOXIN 0.125 MG TAB PO SCH; +DOBUTamine 1000MCG/ML 250 ML IV SCH; -FAM20T PO; +FUROSEMIDE INJECTION 500 MG in D5W 5% 450 ML IV SCH; -LOSA100T25 PO; +MORPHINE SULF INJ 2 MG/ML SYRINGE 1ML IV PRN; +NITROGLYCERIN 0.4 MG SL TAB SL PRN; +RIVAROXABAN 10 MG TAB PO SCH; -SERT-135 PO; +SERT100T PO; -TICA1TAB PO
--- NOTE | 2019-02-09 15:16 | NUR ---
Discharge Instructions See e-MAR for any mediations given with this visit. Patient education given on disease process. Patient verbalized understanding. Previous labs reviewed. Patient discharged in stable condition with after care instructions and follow up appointment. medication heparin ivp Addendum: 02/09/19 at 1726 by SHANNON OLMEDO RN [facility] PT HAD CHEST XRAY SHOWING FLUID IN LUNGS, DIRECT ADMITTING PATIENT TO [facility]. REPORT GIVEN TO MILAGROS BARRY FOR ROOM 294B. PT TAKEN TO HOSPITAL VIA POV BY DWAYNE EARL
[2019-02-09 17:15] VITALS: BP 125/83
== END | disposition home or self-care (01) ==
LOC: Rad HDHVI 14:49
PROVIDERS: ATTEND Internal Medicine Cardiovascular Disease
DX: J98.11 Atelectasis (principal); I50.9 Heart failure, unspecified; E11.9 Type 2 diabetes mellitus without complications; R07.9 Chest pain, unspecified; J90 Pleural effusion, not elsewhere classified
CPT/HCPCS: 71046; G0463; J1642; J1940; J7060